=== PATIENT | male | born 1990 | race African-American/Black ===

== ENCOUNTER 2018-07-11 10:23 | Inpatient (IN) | payer MEDICAID, OTHER ==
[2018-07-11] MEDS ORDERED: Morphine 10 MG/ML VIAL (1 ml) IV ONE (10:59)
[2018-07-11] MEDS ORDERED: Ondansetron INJ* 2 MG/ML VIAL IV ONE (10:59)
[2018-07-11] MEDS ORDERED: NS 0.9% 1000 ML** 1,000 ML IV ONE (10:59)
--- NOTE | 2018-07-11 10:59 | ED ---
Lower Extremity - HPI Summary HPI Summary: This pt is a 27 y/o male presenting to [facility] c/o left lower extremity pain after jogging 2 miles today. Pt reports he was doing a PT test this morning and jogged 2 miles back and forth. He denies fall, trauma, or twisting his left leg. After his jog he felt "regular normal pain" that he usually has with endurance. Pt then was in line for his next test that involved weights. At this point pt was still able to bear weight on left leg but felt his pain increasing in severity. He notes that while the line was moving forward pt couldn't stand on his left leg anymore. Pt currently reports LLE pain from below his knee down to his toes and numbness, described as it is "anesthetized." Denies any other symptoms. - History of Current Complaint Chief Complaint: EDExtremityLower Stated Complaint: INJURED LEFT LEG PER PT Hx Obtained From: Patient Mechanism Of Injury: Other - no trauma Onset of Pain: Hours, Prior to Arrival Onset/Duration: Still Present Severity Initially: Mild Severity Currently: Severe Pain Intensity: 9 Pain Scale Used: 0-10 Numeric Timing: Constant, Lasting Hours Location: Is Discrete @ - left lower extremity Associated Signs And Symptoms: Positive: Other - POS: numbness to LLE. Negative : Swelling, Fever, Knee Pain Aggravating Factor(s): Movement Alleviating Factor(s): Rest Able to Bear Weight: No Related History: Other - after jogging 2 miles, atraumatic - Allergies/Home Medications Allergies/Adverse Reactions: Allergies Allergy/AdvReac Type Severity Reaction Status Date / Time No Known Allergies Allergy Verified 04/11/14 07:35 PMH/Surg Hx/FS Hx/Imm Hx Endocrine/Hematology History: Denies: Hx Diabetes Cardiovascular History: Denies: Hx Congestive Heart Failure, Hx Hypertension History: Denies: Hx Renal Disease - Immunization History Date of Tetanus Vaccine: PT STATES UNSURE Date of Influenza Vaccine: NONE Infectious Disease History: No Infectious Disease History: Denies: Hx Clostridium Difficile, Hx Hepatitis, Hx Human Immunodeficiency Virus (HIV), Hx of Known/Suspected MRSA, Hx Shingles, Hx Tuberculosis, Hx Known/ Suspected VRE, Hx Known/Suspected VRSA, History Other Infectious Disease, Traveled Outside the [place] in Last 30 Days - Family History Known Family History: Negative: Cardiac Disease - Social History Alcohol Use: Weekly Substance Use Type: Reports: None Smoking Status (MU): Never Smoked Tobacco Have You Smoked in the Last Year: No Review of Systems Negative: Fever, Chills Cardiovascular: Negative Respiratory: Negative Gastrointestinal: Negative Musculoskeletal: Other - POS: left lower extremity pain Positive: Numbness All Other Systems Reviewed And Are Negative: Yes Physical Exam - Summary Physical Exam Summary: VITAL SIGNS: Reviewed. GENERAL: Patient is a well-developed and nourished male who is lying comfortable in the stretcher. Patient is not in any acute respiratory distress. HEAD AND FACE: No signs of trauma. No ecchymosis, hematomas or skull depressions. No sinus tenderness. EYES: PERRLA, EOMI x 2, No injected conjunctiva, no nystagmus. EARS: Hearing grossly intact. Ear canals and tympanic membranes are within normal limits. MOUTH: Oropharynx within normal limits. NECK: Supple, trachea is midline, no adenopathy, no JVD, no carotid bruit, no c- spine tenderness, neck with full ROM. CHEST: Symmetric, no tenderness at palpation LUNGS: Clear to auscultation bilaterally. No wheezing or crackles. CVS: Regular rate and rhythm, S1 and S2 present, no murmurs or gallops appreciated. ABDOMEN: Soft, non-tender. No signs of distention. No rebound no guarding, and no masses palpated. Bowel sounds are normal. EXTREMITIES: LLE: good pedal pulses. Tender from the mendes down to the toes. Decreased ROM of the ankle. Tender to palpation along the whole leg. Decreased sensation. Pain is disproportionate to physical exam. NEURO: Alert and oriented x 3. No acute neurological deficits. Speech is normal and follows commands. SKIN: Dry and warm Triage Information Reviewed: Yes Vital Signs On Initial Exam: Initial Vitals Temp Pulse Resp BP Pulse Ox 99.4 F 95 20 147/77 100 07/11/18 10:32 07/11/18 10:32 07/11/18 10:32 07/11/18 10:32 07/11/18 10:32 Vital Signs Reviewed: Yes Diagnostics - Vital Signs Vital Signs Temp Pulse Resp BP Pulse Ox 07/11/18 10:32 99.4 F 95 20 147/77 100 - Laboratory Result Diagrams: 07/11/18 16:05 07/11/18 15:59 Lab Statement: Any lab studies that have been ordered have been reviewed, and results considered in the medical decision making process. - Radiology Left foot XR Radiology Interpretation Completed By: Radiologist Summary of Radiographic Findings: IMPRESSION: No fracture of the left foot is noted. Dr. Casey has reviewed this report. Left ankle XR Radiology Interpretation Completed By: Radiologist Summary of Radiographic Findings: IMPRESSION: No fracture of the left ankle is noted. Dr. Casey has reviewed this report. Left lower extremity XR Radiology Interpretation Completed By: Radiologist Summary of Radiographic Findings: IMPRESSION: No fracture of the left lower leg is noted. Dr. Casey has reviewed this report. - Ultrasound No standard instances Ultrasound Interpretation Completed By: Radiologist Summary of Ultrasound Findings: US of left lower extremity IMPRESSION: No evidence of deep venous thrombosis is identified. Dr. Casey has reviewed this report. Re-Evaluation - Re-Evaluation First Eval Re-Evaluation Time: 12:28 Comment: Dr. Turk, orthopedist, at bedside. Second Eval Re-Evaluation Time: 12:39 Comment: Dr. Turk, orthopedist, examined the pt and does not believe pt has compartment syndrome. Pt has good pulses so no suspicion for arterial occlusion. We are waiting for the US to rule out DVT. Third Eval Re-Evaluation Time: 14:14 Change: Unchanged Comment: Nurse tried to ambulate the pt in the ED and pt was unable to bear weight on left leg. Pt was unable to ambulate. Fourth Eval Re-Evaluation Time: 15:18 Change: Unchanged Comment: On reassessment pt reports his pain is 8/10 on left leg. Lower Extremity Course/Dx - Course Assessment/Plan: This patient is a 27-year-old male who presents to the emergency department with a chief complaint of left lower extremity pain. He reports that he started having severe pain this morning. The pain is reported to be 10/10. A physical exam reveals that the pain is out of proportion in the right lower extremity from the knee down to the foot, persistent deep aching burning pain, paresthesias, decreased sensation, and muscle weakness. The patient still has good pedal and posterior tibial pulses. Therefore have no suspicion for an arterial occlusion. Test results of the x-rays of the left tib -fib, left ankle and left foot negative for fracture dislocation. Ultrasound of the left lower extremity shows no DVT. Therefore, I am suspicious that the patient may be developing compartment syndrome even though the patient doesnt have any history of trauma. Therefore, I discussed the case with and Dr. Walters from orthopedics. Dr. Walters came and saw and examined the patient and he reports that the patients symptoms are not secondary to a compartment syndrome. The patient continues to have pain after the patient was given morphine 8 mg IV therefore the patient was given Toradol 30 mg IV. I tried to ambulate the patient however the patient has history of severe pain, he reports 8 out of 10, he has weakness in the left foot and unable to bear any weight. I tried to admit the patient and the patient is unable to ambulate, the patient is weak in the left lower extremity. The patient continued to have the upper portion, had persisting deep ache and burning, paresthesias, decreased sensation and muscle weakness. The patient is unable to dorsiflex the left foot. Therefore at this time I discussed my physical exam and findings with Dr. Stahl who is on-call right now and he came and assessed the patient. He measured the left lower extremity and elevated it. He confirms that the patient has a compartment syndrome. Therefore, the patient will be taken to the OR. Patient will be admitted under Dr. Loera services. - Diagnoses Provider Diagnoses: Compartment syndrome - Physician Notifications Discussed Care Of Patient With: Hollis Turk Time Discussed With Above Provider: 12:04 Instructed by Provider To: Other - [12:04] Discussed the case with Dr. Turk, orthopedist, who will come see the pt in the ED. [14:21] Dr. Stahl, orthopedist, was called however his nurse reports he is in surgery and will call back as soon as he is done. [15:12] Discussed the case with Dr. Stahl, orthopedist, who will come see the pt in the ED. At 15:40 Dr. Stahl arrives for a consult. He states his BPs are high in the LLE. He accepts pt for admission. - Critical Care Time Critical Care Time: 75-104 min - CCT is exclusive of separately billable procedures. Discharge - Sign-Out/Discharge Documenting (check all that apply): Patient Departure - Admit Patient Received Moderate/Deep Sedation with Procedure: No - Discharge Plan Condition: Stable Disposition: ADMITTED TO [facility] - Billing Disposition and Condition Condition: STABLE Disposition: Admitted to [facility] - Attestation Statements Document Initiated by Ana: Yes Documenting Scribe: Ashley Vazquez Provider For Whom Ana is Documenting (Include Credential): Bola Casey MD Scribe Attestation: Ashley Rose, scribed for Bola Casey MD on 07/11/18 at 1846. Scribe Documentation Reviewed: Yes Provider Attestation: The documentation as recorded by the Ashley canada accurately reflects the service I personally performed and the decisions made by me, Bola Casey MD Status of Scribe Document: Viewed
[2018-07-11 11:32] LABS: ABS Basophils 0.1 10^3/ul (0-0.2); ABS Eosinophils 0 10^3/ul (0-0.6); ABS Lymphocytes 0.9 10^3/ul (1.0-4.8); ABS Monocytes 0.6 10^3/ul (0-0.8); ABS Neutrophils 11.7 10^3/ul (1.5-7.7); ABS Nucleated RBC 0 10^3/ul; Eosinophil % 0 %; Hematocrit 46 % (36-46); Hemoglobin 15.2 g/dL (14.0-18.0); Lymphocyte % 6.8 %; Mean Corpuscular HGB Conc 33 g/dL (31-36); Mean Corpuscular Hemoglobin 26 pg (27-31); Mean Corpuscular Volume 77 fL (80-94); Mean Platelet Volume 7.8 fL (7.4-10.4); Nucleated Red Blood Cells % 0.1; Platelet Count 202 10^3/uL (150-450); Red Blood Count 5.97 10^6 /uL (4.18-5.48); Red Cell Distribution Width 14 % (10.5-15); White Blood Count 13.3 10^3/uL (3.5-10.8)
[2018-07-11 11:58] LABS: C Reactive Protein 1.6 mg/L (<8.01)
[2018-07-11] MEDS ORDERED: Morphine 4 MG/ML VIAL (1 ml) 4 MG/ML VIAL IV ONE (11:59)
[2018-07-11] MEDS ORDERED: Ketorolac INJ* 30 MG/ML 1 ML VIAL IM ONE (13:38)
--- NOTE | 2018-07-11 13:48 | CONS ---
EMERGENCY ROOM CONSULTATION NOTE: DATE OF CONSULT: 07/11/18 REASON FOR CONSULTATION: Left lower extremity pain and discomfort. BRIEF CLINICAL NOTE: This is a 27-year-old male who presented to the [facility] Emergency Room complaining of left lower extremity pain after a run. The patient vehemently denies any history of trauma to the left lower extremity. The patient states that he was running and began to develop severe left leg pain which prompted him to come to the emergency room. He was seen by the emergency room physician, Dr. Casey who evaluated the patient, obtained blood work and then asked for an orthopedic consultation for suspected compartment syndrome of the left leg. On seeing the patient, I asked the patient again about trauma which he vehemently denied. He states it is difficult for him to dorsiflex his foot on his own without discomfort. PHYSICAL EXAM: The patient has excellent pulses, dorsalis pedis and posterior tibial. Inspection of his left leg, calf is that it is soft and minimally tender to palpation. The patient has no increased pain of passive stretch of his ankle that is on forced dorsiflexion and plantar flexion. He has pain at the dorsum of his left foot but not his anterior calf or posterior calf and again as I stated both medial and lateral aspects of his leg, his calf are soft and minimally tender to palpation. DIAGNOSTIC STUDIES: The patient has had an ultrasound which appears to be within normal limits. X-rays of the patient's left lower extremity do not reveal any evidence of fracture or osseous abnormality. IMPRESSION: My impression is that I am uncertain as to the etiology of the patient's discomfort but I would suggest a vascular consult to be performed as again I am uncertain of the etiology of the patient's discomfort. I have discussed this case at length with Dr. Casey, the patient's ER physician and again on repeat review of the patient's left leg x-rays, I do not see any evidence of fracture of the left foot. I have reviewed AP, lateral and oblique and I do not see any evidence of fracture or osseous abnormality of the patient' s left foot and the radiologist concurs with my assessment. Additionally, I have re-reviewed the patient's left leg x-rays AP and lateral and I see no evidence of acute or chronic fracture of the patient's left lower leg, tib-fib and again re-reviewed the patient's ankle views AP, lateral and mortise and again there is no evidence of fracture or osseous abnormality. The vein study has not been officially read yet; however, I do not see any suspicion that would make me concerned about an acute compartment syndrome. In short, at this present time, I do not see evidence of a compartment syndrome involving the patient's left leg. I would strongly recommend an evaluation by vascular services and I have discussed that with the patient and with Dr. Casey and should orthopedic services be further needed, I am more than happy to respond and reevaluate the patient. Again, index of suspicion for a compartment syndrome is very low. [id number]/[id number] #: [id number] MTDD
[2018-07-11 13:56] LABS: Albumin 4.8 g/dL (3.2-5.2); Albumin/Globulin Ratio 1.7 (1-3); BUN/Creatinine Ratio 17.4 (8-20); EGFR African American 96.8 (>60); Globulin 2.9 g/dL (2-4); Potassium 4.2 mmol/L (3.5-5.0); Total Bilirubin 0.4 mg/dL (0.2-1.0); Total Protein 7.7 g/dL (6.4-8.9)
[2018-07-11 14:05] LABS: Urine Appearance Clear; Urine Bilirubin Negative (Negative); Urine Blood Negative (Negative); Urine Color Yellow; Urine Glucose Negative (Negative); Urine Ketones 1+ (Negative); Urine Nitrite Negative (Negative); Urine Protein Negative (Negative); Urine Specific Gravity 1.016 (1.010-1.030); Urine Urobilinogen Negative (Negative)
[2018-07-11] MEDS ORDERED: BENZOCAINE* 20% LIQUID SWAB 1 EACH MED..SWAB MT ONE (16:05)
[2018-07-11 16:17] LABS: ABS Lymphocytes 1.1 10^3/ul (1.0-4.8); ABS Monocytes 0.4 10^3/ul (0-0.8); Hematocrit 47 % (36-46); Hemoglobin 15.3 g/dL (14.0-18.0); Mean Corpuscular HGB Conc 33 g/dL (31-36); Mean Corpuscular Hemoglobin 25 pg (27-31); Mean Corpuscular Volume 77 fL (80-94); Mean Platelet Volume 8.3 fL (7.4-10.4); Platelet Count 174 10^3/uL (150-450); Red Blood Count 6.09 10^6 /uL (4.18-5.48); Red Cell Distribution Width 14 % (10.5-15); White Blood Count 11.6 10^3/uL (3.5-10.8)
[2018-07-11 16:18] LABS: ABS Basophils 0 10^3/ul (0-0.2); ABS Eosinophils 0 10^3/ul (0-0.6); ABS Nucleated RBC 0 10^3/ul; Eosinophil % 0 %; Lymphocyte % 9.6 %; Nucleated Red Blood Cells % 0.3
[2018-07-11] MEDS ORDERED: NS 0.9% 1000 ML** 1,000 ML IV SCH (16:30)
[2018-07-11 16:42] LABS: ALT 15 U/L (7-52); Albumin 4.9 g/dL (3.2-5.2); Albumin/Globulin Ratio 1.5 (1-3); Alkaline Phosphatase 38 U/L (34-104); BUN/Creatinine Ratio 15.3 (8-20); Blood Urea Nitrogen 15 mg/dL (6-24); CO2 Carbon Dioxide 24 mmol/L (22-32); Calcium 9.7 mg/dL (8.6-10.3); Chloride 103 mmol/L (101-111); Creatine Kinase 1734 U/L (10-223); EGFR African American 109.4 (>60); EGFR Non-African American 90.4 (>60); Globulin 3.2 g/dL (2-4); Glucose 94 mg/dL (70-100); Sodium 136 mmol/L (135-145); Total Protein 8.1 g/dL (6.4-8.9)
[2018-07-11] MEDS ORDERED: Bupivacaine 0.5%* 50 ML VIAL ONE (16:42)
[2018-07-11] MEDS ORDERED: Bupivacaine 0.25% SDV PF* 10 ML VIAL INJ ONE (16:45)
[2018-07-11] MEDS ORDERED: Ondansetron INJ* 2 MG/ML VIAL IV PRN (16:59)
[2018-07-11] MEDS ORDERED: HYDROcodone/ACETAMIN 5-325 MG* 1 TAB PO PRN ×2 (16:59)
[2018-07-11] MEDS ORDERED: PROCHLORPERAZINE INJ 5 MG/ML 2 ML VIAL IV PRN (16:59)
[2018-07-11] MEDS ORDERED: Acetaminophen TAB* 325 MG PO PRN ×2 (16:59→18:45)
[2018-07-11] MEDS ORDERED: Buffered Lidocaine 1% SYRIN* 1 ML/SYRINGE INTRADERM ONE (16:59)
[2018-07-11] MEDS ORDERED: diPHENhydraMINE IV* 50 MG/ML 1 ml VIAL (BENADRYL) IV PRN (16:59)
[2018-07-11] MEDS ORDERED: DiMENhydriNATE IV* 50 MG/ML VIAL IV PUSH PRN (16:59)
[2018-07-11] MEDS ORDERED: Naloxone* 0.4 MG/ML 1 ML VIAL IV PRN (16:59)
[2018-07-11] MEDS ORDERED: Lactated Ringers 1000 ML Bag* 1,000 ML IV SCH (17:00)
[2018-07-11] MEDS ORDERED: Famotidine IV* 10 MG/ML 2 ML (20 mg) ONE (17:01)
[2018-07-11] MEDS ORDERED: fentaNYL* 50 MCG/ML 2 ML VIAL (100 MCG VIAL) ONE ×4 (17:04→19:18)
[2018-07-11] MEDS ORDERED: Midazolam* 1 MG/ML 2 ML VIAL (2 MG) ONE (17:04)
[2018-07-11] MEDS ORDERED: ceFAZolin 2 GM PREMIX in ORs 2 GM/50 ML BAG IVPB ONE (17:05)
[2018-07-11] MEDS ORDERED: Succinylcholine* 20 MG/ML 10 ML VIAL ONE (17:06)
[2018-07-11] MEDS ORDERED: Cisatracurium* 2 MG/ML MDV 5 ML ONE (17:06)
[2018-07-11] MEDS ORDERED: Propofol* 10 MG/ML 20 ML BTL ONE (17:06)
[2018-07-11] MEDS ORDERED: Dexamethasone IV* 4 MG/ML 1 ML (4 MG) ONE (17:06)
[2018-07-11] MEDS ORDERED: Lidocaine 2% PF * 5 ML VIAL ONE (17:06)
[2018-07-11 17:09] LABS: Anion Gap 9 mmol/L (2-11)
[2018-07-11] MEDS ORDERED: ceFAZolin 2 GM in NS PREMIX(*) 2 GM/100 ML BAG IVPB ONE (17:09)
[2018-07-11 17:27] LABS: Activated Partial Thrombo Time 31.8 seconds (26.0-36.3); INR 1.04 (0.77-1.02)
--- NOTE | 2018-07-11 17:58 | HP ---
HISTORY AND PHYSICAL: DATE OF ADMISSION: 07/11/18 ADMISSION DIAGNOSIS: Left lower leg compartment syndrome. 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 The patient had physical testing with the [employer] this morning. Over recent weeks, he had been working out 2 to 3 times a week running and 2 to 3 times a week in the gym. This morning, the patient did much physical testing with the [employer]. He did push-ups, sit-ups and ran 4 times. The patient had no difficulties while completing these tasks. Afterwards, the patient was waiting in line to have his height and weight measured. He developed severe pain in the left lower leg. This was anterolateral. This was at 8:30 a.m. this morning, 07/11/18. The patient tried stretching. He could barely bear any weight. The patient was driven by a friend, also in the [employer] [place], to [facility]. The patient states that he developed numbness and tingling while driving to the hospital. The patient states that he does not have tingling now, but he does note reduced sensation in the foot. At first, the patient said that he had reduced sensation throughout the foot. Then, he told me it was specifically in the dorsum of the foot and the toes where his sensation was reduced. The patient was in significant pain according to ED staff, the patient and his friend. The patient states that he was almost shaking in discomfort at first. The patient was then given morphine in the ED and was more comfortable. The patient was given some type of anti-inflammatory medication as well. The patient was seen by another orthopaedic surgeon earlier in the day in the ED. During an operation of [facility] in the afternoon, I received a message to call Dr. Casey of emergency room staff at the end of my case. I did so. I called him at the conclusion of my operating room case. I was told that there was a patient in the ED with significant left lower leg pain, with symptoms and signs consistent with a compartment syndrome. I went immediately to the emergency room to evaluate the patient. The patient as above described some decreased sensation about the toes and dorsum of the foot and pain in the lower leg anterior and lateral. The patient has never had similar symptoms. PAST MEDICAL HISTORY: None. PAST SURGICAL HISTORY: None. HOSPITALIZATIONS: None. MEDICATIONS: No medications. ALLERGIES: No known drug allergies. SOCIAL HISTORY: The patient lives with a roommate. He does not smoke. He does drink alcohol. The patient does have somewhat of an accent, but I did not ask where he is originally from, if it was from outside the [place]. REVIEW OF SYSTEMS: No chest pain, shortness of breath, heart palpitations. No headache, nausea, vomiting. No abdominal pain, diarrhea. No other joint pain. PHYSICAL EXAMINATION GENERAL: No acute distress. Nontoxic-appearing. Alert and oriented, appropriate mood and affect, appropriate dress and hygiene, although the patient smells of body odor as would be expected after a workout. The patient was lying supine in stretcher in emergency room bay. VITAL SIGNS: Most recent vitals recorded were at 1:33 p.m. including pulse rate 73, blood pressure 162/92, oxygen saturation 100% on room air. Most recent blood pressure was 163/99 obtained at 2:03 p.m. I did not have a blood pressure obtained at the time of compartment syndrome testing, but the compartment pressures were so high that the diastolic blood pressure would not add additional diagnostic value. RESPIRATORY: Clear to auscultation bilaterally. CARDIAC: Heart rate regular rate and rhythm. No murmurs. EXTREMITIES: Left lower extremity: Examination of the left lower extremity showed some soft tissue swelling, moderate about the proximal left lower leg, anterior and lateral. No open skin. The patient had tenderness to palpation along the anterior and lateral compartments of the left lower leg. The posterior compartments on the other hand appeared soft and were not significantly tender to palpation. Passive range of motion of the toes and ankle, small amounts, was tolerated but was painful. It was clearly causing pain, although the patient was not quite jumping off the stretcher with significant pain. He thought that he might have been in more pain prior to his morphine dosing. Distally, the patient had intact excellent pulses, dorsalis pedis and posterior tibialis. Cap refill less than 2 seconds. or his motor exam, the patient could plantarflex his toes, but did so gingerly. The patient was unable to extend or dorsiflex his toes. He did not know whether this was from weakness or whether he was doing it to avoid pain, avoiding movements actively to avoid pain. The patient did have intact dorsiflexion and plantarflexion of the ankle actively, but there was discomfort with this. Sensation exam to light touch varied slightly, so I repeated it multiple times. Eventually, the patient decided that sensation was normal on the plantar aspect of the foot, but was abnormal, reduced on the dorsum of the foot and in the toes. DIAGNOSTIC STUDIES/LAB DATA: Imaging: The patient had multiple x-rays in the emergency room including 2 views left lower leg, 3 views ankle and 3 views foot , which showed no fracture and no significant degenerative changes. Emergency room staff had also ordered a duplex ultrasound, which showed no evidence of DVT. Labs were obtained after I requested them. A CK (creatine kinase) had been performed earlier in the day and was 333 at 11:22 a.m. Repeat labs showed a CK level of 1734 at 3:59 p.m. The patient's lactic acid was 3.8. White blood cell count 13.3 and then 11.6. ASSESSMENT: Likely left lower leg compartment syndrome. PLAN: 1. This clinical picture was very concerning for left lower leg compartment syndrome of the anterior and lateral compartments. 2. I performed compartment pressure testing left lower leg. I obtained a written consent and used sterile technique. 3. Procedure: Left lower leg compartment pressure measurement testing as mentioned above with written consent and sterile technique. At the mid-lower leg, I measured anterior and lateral compartments. Anterior compartment was 135 mmHg and lateral compartment was 130 mmHg. Then proximally where there was more swelling, I measured the anterior compartment to have 62 mmHg and the lateral compartment to have 141 mmHg. I then measured the deep posterior and the superficial posterior compartments. The deep posterior compartment measured 24 mmHg and the superficial posterior compartment measured 30 mmHg. 4. Compartment pressure testing certainly confirmed the diagnosis with values ranging from 62 to 141. The values of 130, 135 and 141 certainly represent compartment syndrome requiring surgery. 5. The patient is n.p.o. since 6:30 a.m. this morning. 6. To the operating room for left lower leg fasciotomy, compartment releases, possible muscle debridement, possible VAC sponge placement. I will decide with another exam in the PACU as well as in the operating room if I would just release the anterior and lateral compartments or if I will also release the posterior compartments. 7. Discussed risks and potential complications of surgery including bleeding, infection, nerve or blood vessel injury, failure to close the skin, requirement of second surgery to close the skin, requirement of future skin grafting, requirement to debride muscle during this surgical procedure. 8. I notified OR staff of this case immediately, prior to dictating this note, and this patient was brought to preop holding and then the operating room urgently. [id number] #: [id number] MTDD
[2018-07-11] MEDS ORDERED: Ondansetron INJ* 2 MG/ML VIAL ONE (18:25)
[2018-07-11] MEDS ORDERED: HYDROcodone/ACETAMIN 5-325 MG* 1 TAB ONE ×2 (18:45→19:19)
[2018-07-11] MEDS: fentaNYL* 50 MCG/ML 2 ML VIAL (100 MCG VIAL) IV PRN ×4 (18:48→20:13)
[2018-07-11] MEDS: Morphine INJ* 2 MG/ML 1 ML SYRINGE (TWO MG - NEW SYRINGE VERSION) IV PRN ×2 (20:57→23:22)
[2018-07-11] MEDS: Lactated Ringers 1000 ML Bag* 1,000 ML IV SCH (21:01)
[2018-07-11 21:29] LABS: Myoglobin 3777.4 ng/mL (17.4-105.7)
--- NOTE | 2018-07-11 22:39 | CONS ---
CC: Dr. Ryan * CONSULTATION REPORT: DATE OF CONSULT: 07/11/18 TIME OF CONSULT: 9 p.m. CONSULTING SERVICE: Orthopedic Surgery, Dr. Stahl. PRIMARY CARE PHYSICIAN: Dr. Ryan. CHIEF COMPLAINT: Left leg pain. REASON FOR CONSULTATION: Hypertension. HISTORY OF PRESENT ILLNESS: This is a 27-year-old man who presented to the emergency department after severe left leg pain and numbness after an exercise with the [employer] this morning. In the emergency department, he was found to have elevated compartment pressures and was taken emergently to the operating room with Dr. Stahl for fasciotomy. The etiology was thought was to be exercise-induced compartment syndrome. In the PACU, he was noted to have elevated blood pressures, the highest recorded is 189/111 and so we were asked to consult for blood pressure management. I came to evaluate Mr. Severino on Short Stay postoperatively and he is feeling okay. He says he still has significant pain postop and rates it at a 6/10 after a recent dose of morphine. Otherwise, he feels well and has no complaints. He has never been diagnosed with hypertension. He does have a primary care physician, Dr. Ryan; however, the last time he saw him was in 2017. He has had [address] Ryan and I have reviewed his blood pressures from 2016 to 2017 and he was normotensive from the 100s to 120s systolic. He takes no energy drinks or coffee, but does take an occasional supplement before he works out, which he did take this morning, but is not sure of the ingredients. REVIEW OF SYSTEMS: As per the HPI. Remainder of 14-point review of systems is negative. PAST MEDICAL HISTORY: Nephrolithiasis. HOME MEDICATIONS: None. SOCIAL HISTORY: He is a never smoker. He drinks 3 bottles of beer on Saturday, Saturday, and Saturday, but none during the week. He does not drink coffee or energy drinks. FAMILY HISTORY: He denies any family history of medical problems. He knows of no family members who have hypertension, heart disease, kidney disease, or diabetes. PHYSICAL EXAM: Temperature 98.4, heart rate 72, respiratory rate 16, pulse ox of 100% on room air, blood pressure 157/84. General: Alert, well-appearing young man, in no distress. He is resting comfortably. HEENT: Pupils are 2 mm bilaterally. Oral mucosa is dry. Neck: No JVP. No cervical adenopathy. No carotid bruits. Chest: He is in a regular rate and rhythm with no murmurs. His lungs are clear bilaterally. Abdomen is soft, nontender, nondistended. His liver is nonpalpable. Extremities: His left extremity is wrapped and with a cryo unit. His DP pulses are 2+ bilaterally and his sensation is intact distally bilaterally. DIAGNOSTIC STUDIES/LAB DATA: White blood cells are 11.6, hemoglobin 15.3, platelets 174, INR 1.04. Sodium 136, potassium was not tested due to hemolysis , chloride 103, bicarb 24, creatinine 0.98, BUN 15, glucose 94, lactic acid was initially 3.8 and then 0.7. CK was 1734. Urinalysis was unremarkable. Imaging: Venous Doppler study showed no evidence of DVT. Lower extremity x- ray showed no fracture of the left leg. ASSESSMENT AND PLAN: This is a 27-year-old, previously healthy man who presented to the emergency department today with leg pain and was found to have compartment syndrome. Medicine is consulted for hypertension postoperatively. 1. Hypertension. Certainly, his blood pressure was quite elevated postoperatively. However, it has trended down without intervention other than pain management on the floor. His current blood pressure is mildly elevated in the 150s/80s. I will hold off on antihypertensives at this time. However, we will continue to monitor to be sure he does not have underlying hypertension. I will continue to treat his pain and he may need more analgesia. Alcohol withdrawal is a concern; however, his last drink was reportedly on Saturday, so this is unlikely. He denies any other drugs that would suggest an etiology of hypertension or withdrawal. 2. Postop day #0, fasciotomy. He is receiving IV fluids, which I agree with and p.r.n. morphine as well as Percocet p.r.n. 3. Disposition: We will continue to follow Mr. Severino to be sure his blood pressure is acceptable. Thank you for this consultation. [id number]/[facility] #: [id number] [facility]OSPITALGeorge
[2018-07-12] MEDS: oxyCODONE/Acetamin 5/325 MG* TAB PO PRN ×5 (00:33→21:02)
[2018-07-12] MEDS: ceFAZolin 1 GM ADVAN(*) 1 GM in NS 0.9% 50 ML* 50 ML IVPB SCH ×5 (01:40→17:33)
[2018-07-12] MEDS: Lactated Ringers 1000 ML Bag* 1,000 ML IV SCH ×4 (04:13→23:14)
--- NOTE | 2018-07-12 11:12 | PN ---
Progress Note - Progress Note Date of Service: 07/12/18 SOAP: Subjective: Fortunately, despite the muscle swelling found intraoperatively yesterday afternoon/evening, we were able to primarily close the subcutaneous tissue and skin for an excellent primary closure. Patient reports decreased pain left lower leg and improved sensation left foot. This improved immediately postop, but has continued to improve. He still has pain and has been received PO and IV pain medication overnight. The patient had an elevated BP overnight, which was watched by myself and Hospitalist. CK elevated to 14,000 postoperatively last night, indicative of severe rhabdomyolysis from the compartment syndrome. Fortunately no elevated creatinine so no clear kidney injury or failure. Patient has been receiving 150 cc per hour of IVF overnight. Objective: NAD. Non-toxic appearing. LLE: - Dressing on - Intact DF/PF ankle, flexion/extension toes. Strength 4+ of 5. Much improved from preop. - Sensation intact except for still decreased in the distributions of the deep and superficial peroneal nerves. This sensation is significantly improved compared with preop in the peroneal nerve distribution. - Passive DF/PF ankle and flexion/extension toes is tolerated with less pain - Warm well perfused Selected Entries 07/12/18 07:26 Temperature 98.2 F Pulse Rate 59 Respiratory 18 Rate Blood Pressure 152/80 (mmHg) O2 Sat by Pulse 99 Oximetry Laboratory Tests 07/11/18 07/11/18 07/11/18 11:22 11:22 13:14 WBC Hct Creatinine 1.09 Lactic Acid 3.8 H* Total Creatine Kinase 333 H Myoglobin 07/11/18 07/11/18 07/11/18 15:59 16:05 21:01 WBC 11.6 H Hct 47 H Creatinine 0.98 Lactic Acid 0.7 Total Creatine Kinase 1734 H Myoglobin 07/11/18 21:02 WBC Hct Creatinine Lactic Acid Total Creatine Kinase 09082 H Myoglobin 3777.4 H Assessment: POD 1 fasciotomy left lower leg anterior and lateral compartments Rhabdomyolysis Plan: - Labs were ordered for this morning, but not drawn. They will be drawn now. - Monitor CK, Creatinine, and electrolytes to gauge the degree of muscle injury and detect any kidney injury - Continue IV fluids at 150cc/hour. If creatinine elevates, we will increase the rate of IV fluids. - I would like for the patient to be less painful after fasciotomy. I want to see the patient's pain continue to decrease today. I will keep him NPO for a few hours just to provide flexibility in the highly unlikely (<1%) chance that I would operate again today.
[2018-07-12] MEDS: Morphine INJ* 2 MG/ML 1 ML SYRINGE (TWO MG - NEW SYRINGE VERSION) IV PRN ×3 (14:29→23:16)
[2018-07-12 15:01] LABS: Myoglobin 1742.1 ng/mL (17.4-105.7)
[2018-07-12 17:00] LABS: Albumin 3.8 g/dL (3.2-5.2); Calcium 8.8 mg/dL (8.6-10.3); Total Bilirubin 0.5 mg/dL (0.2-1.0)
[2018-07-12 17:06] LABS: Albumin/Globulin Ratio 1.4 (1-3); EGFR African American 120.7 (>60); EGFR Non-African American 99.8 (>60); Globulin 2.8 g/dL (2-4); Total Protein 6.6 g/dL (6.4-8.9)
[2018-07-12] MEDS ORDERED: amLODIPine TAB* 5 MG PO SCH (18:00)
[2018-07-12 18:56] LABS: Potassium 4.5 mmol/L (3.5-5.0)
--- NOTE | 2018-07-12 19:50 | CONSULT ---
Subjective Date of Service: 07/12/18 Interval History: CK up to 14K then 21K Pain 5/10 with meds 7/10 otherwise [employer] stable. otherwise no complaints other than some slight parasthesias of right dorsum foot. no SOB or chest pain. Urinating clear x3. Review of Systems - Measurements Intake and Output: Intake and Output Last 24 Hours 07/10/18 07/11/18 07/12/18 07/13/18 06:59 06:59 06:59 06:59 Intake Total 2742020 Output Total 1150 1100 Balance 1595 921 Weight 71.214 kg Intake: IV Fluids 2592020 ABX - CEFAZOLIN 50 LR 990 1971 lr 600 IVPB 55 ABX - CEFAZOLIN 55 Oral 100 0 Output: Urine 1150 1100 Objective Active Medications: Acetaminophen (Tylenol Tab*) 650 mg PO Q8H PRN PRN Reason: PAIN OR TEMPERATURE Amlodipine Besylate (Norvasc Tab*) 5 mg PO DAILY EULAL[facility] Last Admin: 07/12/18 18:20 Dose: 5 mg Lactated Ringer's (Lactated Ringers 1000 Ml Bag*) 1,000 mls @ 250 mls/hr IV PER RATE EULAL[facility] Morphine Sulfate (Morphine Inj (Syringe))*) 2 mg IV Q2H PRN PRN Reason: PAIN Last Admin: 07/12/18 14:29 Dose: 2 mg Oxycodone/Acetaminophen (Percocet 5/325 Tab*) 2 tab PO Q4H PRN PRN Reason: PAIN Last Admin: 07/12/18 16:28 Dose: 2 tab Oxycodone/Acetaminophen (Percocet 5/325 Tab*) 1 tab PO Q4H PRN PRN Reason: PAIN Vital Signs - 8 hr 07/12/18 07/12/18 07/12/18 14:29 16:28 16:29 Temperature Pulse Rate Respiratory 16 20 20 Rate Blood Pressure (mmHg) O2 Sat by Pulse Oximetry 07/12/18 07/12/18 07/12/18 16:34 16:40 17:20 Temperature 99.1 F Pulse Rate 68 Respiratory 16 Rate Blood Pressure 185/84 172/84 170/78 (mmHg) O2 Sat by Pulse 100 Oximetry 07/12/18 18:41 Temperature Pulse Rate Respiratory 18 Rate Blood Pressure (mmHg) O2 Sat by Pulse Oximetry Oxygen Devices in Use Now: None Appearance: NAD. Eyes: No Scleral Icterus Ears/Nose/Mouth/Throat: NL Teeth, Lips, Gums Neck: NL Appearance and Movements; NL JVP, Trachea Midline Respiratory: Symmetrical Chest Expansion and Respiratory Effort, Clear to Auscultation Cardiovascular: NL Sounds; No Murmurs; No JVD, RRR Abdominal: NL Sounds; No Tenderness; No Distention, No Hepatosplenomegaly Extremities: - - right lateral calf with dressing, no strike thru. Sensation intact though paraesthesias. can wiggle toes. Neurological: Alert and Oriented x 3 Nutrition: Taking PO's Result Diagrams: 07/11/18 16:05 07/12/18 14:25 Additional Lab and Data: Laboratory Results - last 24 hr 07/11/18 07/11/18 07/11/18 21:01 21:01 21:02 Sodium Potassium Chloride Carbon Dioxide Anion Gap BUN Creatinine Est GFR ( Amer) Est GFR (Non-Af Amer) BUN/Creatinine Ratio Glucose Lactic Acid 0.7 Calcium Total Bilirubin AST ALT Alkaline Phosphatase Total Creatine Kinase 77356 H Myoglobin 3777.4 H B-Natriuretic Peptide 45 Total Protein Albumin Globulin Albumin/Globulin Ratio 07/12/18 07/12/18 07/12/18 14:25 14:25 14:25 Sodium 135 Potassium 4.5 Chloride 105 Carbon Dioxide 22 Anion Gap 8 BUN 9 Creatinine 0.90 Est GFR ( Amer) 120.7 Est GFR (Non-Af Amer) 99.8 BUN/Creatinine Ratio 10.0 Glucose 84 Lactic Acid 1.0 Calcium 8.8 Total Bilirubin 0.50 AST 329 H ALT 48 Alkaline Phosphatase 30 L Total Creatine Kinase 15151 H Myoglobin 1742.1 H B-Natriuretic Peptide 70 Total Protein 6.6 Albumin 3.8 Globulin 2.8 Albumin/Globulin Ratio 1.4 Assessment/Plan - Billing Plan By Medical Problem: 1. HTN - likely pain related but still elevated. Adding amlodipine 5mg. Pain control per ortho. 2. Rhabdo - CK climbing but [employer] stable. Adding on BMP daily. Increasing fluid from LR 150 to 250. Monitor for and SOB. Will continue to follow.
[2018-07-12] MEDS ORDERED: amLODIPine TAB* 5 MG PO ONE (22:18)
[2018-07-12] MEDS: hydrALAZINE IV* 20 MG/ML VIAL IV SLOW PU PRN (22:36)
[2018-07-13] MEDS: oxyCODONE/Acetamin 5/325 MG* TAB PO PRN ×4 (01:36→19:33)
[2018-07-13] MEDS: Morphine INJ* 2 MG/ML 1 ML SYRINGE (TWO MG - NEW SYRINGE VERSION) IV PRN ×6 (01:37→22:56)
--- NOTE | 2018-07-13 02:12 | OP ---
OPERATIVE REPORT: DATE OF OPERATION: 07/12/18 DATE OF : 86 SURGEON: Ayush Stahl MD AIRCRAFT MECHANIC: TK Liao A physician technology assistant was required for the length of the procedure for assistance with positioning, retraction, and closure. ANESTHESIOLOGIST: Dr. Ismael Mclaughlin. ANESTHESIA: General anesthesia, local anesthesia with a minimum of Marcaine placed subcutaneous about the incision site. PRE-OP DIAGNOSIS: Left lower leg compartment syndrome, traumatic, anterior and lateral compartments. POST-OP DIAGNOSIS: Left lower leg compartment syndrome, traumatic, anterior and lateral compartments. OPERATIVE PROCEDURE: Fasciotomies, left lower leg anterior and lateral compartments for a traumatic compartment syndrome. ANTIBIOTICS: Ancef 2 g IV. IV FLUIDS: 500 cc crystalloid. TOURNIQUET TIME: 37 minutes of a left thigh tourniquet set at 300 mmHg. [id number] TIME: 35 minutes. SPECIMEN: None. IMPLANTS: None. COMPLICATIONS: None. ESTIMATED BLOOD LOSS: Minimal. INDICATIONS: The patient is a 27-year-old man, who is also in the [employer], who presented to the emergency room on 07/11/18 after developing some left lower extremity complaints after some physical exam testing for the [employer]. The patient presented to the emergency room unable to comfortably bear weight with significant pain in the left lower leg as well as numbness and tingling on the dorsum of the left foot. The patient's history and physical were consistent with a compartment syndrome, although the patient had less pain and is typical with passive range of motion of the toes and ankle. Compartment pressure testing was performed by me in the emergency room with elevated pressures in both the anterior and lateral compartments of the left lower leg. This confirmed the diagnosis of a compartment syndrome, anterior and lateral compartments, left lower leg. After doing compartment testing, I immediately booked the operation and had the patient brought up to preoperative holding and arranged an operating room to be available for surgery. I discussed with the patient a procedure which would be a fasciotomy of the affected compartments, possible muscle debridement, possible primary skin closure, possible delayed closure, possible VAC sponge placement. I discussed risks and potential complications of surgery including but not limited to bleeding, infection, nerve or blood vessel injury, muscle necrosis, need for multiple additional surgeries, need for skin grafting. DESCRIPTION OF PROCEDURE: In the preoperative holding, the patient signed a written consent. Operative extremity was marked in preoperative holding. The patient was taken back to the operating room and placed supine on operating room table. Sedated and intubated. [place] bumps placed under the left hemipelvis. Left lower extremity was prepped and draped. Surgical time-out was performed. I debated using a tourniquet or not. Certainly compartment syndrome comes as a result of a decreased arterial inflow into the affected compartments. Tourniquet adds to this restricted inflow. However, I anticipated a very quick fasciotomy within skin incision. I figured that the tourniquet will provide improved visualization that would prevent a nerve injury to the superficial peroneal nerve or any other nerve in the anterior or lateral compartment. Therefore, the tourniquet around the left thigh was elevated 300 mmHg. A tourniquet was only elevated after surgical time-out had been performed. The left lower extremity was prepped and draped. I next made my skin incision over the anterolateral lower leg. My incision was 19 cm long. I dissected down through subcutaneous tissue to fascia. I cleared off the fascia very clearly along the length of the incision, just proximal and just distal to the skin incision as well. I identified the septum between the anterior and the lateral compartments. I made an incision in the anterior compartment. I did this away from the skin incision for healing purposes. I made the incision with a knife and continued with it Metzenbaum scissors both proximally and distally. I released only what I could see proximally and distally. I released at least 4 cm proximal and distal to the ends of the skin incision. I next moved to the lateral compartments and made a fasciotomy. I likewise extended this to length of the skin incision plus additional length both proximal and distal. As soon as I made the incisions in the fascia, both in the anterior and lateral compartments, the muscle burst slightly out of the fascia. This was less extreme than I have seen in the past. I evaluated the muscle. No clear necrotic muscle evident in either compartment, so no requirement of muscle debridement. Irrigation of wound. I was able to appose skin edges without significant tension so I realized that the primary closure will be feasible. We closed the subcutaneous layer with buried simple stitches using Vicryl 2-0 suture. I closed the skin with multiple running stitches using Nylon 3- 0 suture. We chose this over a staple for cosmetic reasons. We used a small amount of local anesthesia after skin closure and prior to dressing placement, approximately 5 cc of Marcaine. Xeroform, 4x4s, sterile Webril, Oz bandage. The patient was awakened, extubated and brought to the PACU. DISPOSITION: In the PACU, once the patient was awakened and became slightly more alert, I performed a physical exam. The patient had improvement in his active range of motion of his toes and ankle and he noted some improved sensation of the dorsum of the foot. The patient was admitted to my service for monitoring. We ordered pain medications to take as needed for pain. Our plan was to keep the patient's left lower extremity at the level of the heart. A cooling unit was used, cryotherapy was placed on the left lower leg to reduce inflammation and swelling. We placed an order for labs, serial creatinine kinase, chemistries, myoglobin. [id number]/[facility] #: [id number] [facility]TD[facility]
[2018-07-13] MEDS: Lactated Ringers 1000 ML Bag* 1,000 ML IV SCH ×2 (03:26→07:39)
[2018-07-13 07:48] LABS: BUN/Creatinine Ratio 7.1 (8-20); Calcium 9.3 mg/dL (8.6-10.3); EGFR African American 128.9 (>60); EGFR Non-African American 106.6 (>60); Potassium 4.2 mmol/L (3.5-5.0)
--- NOTE | 2018-07-13 08:40 | PN ---
Subjective Date of Service: 07/13/18 Interval History: Mr. Severino reports having pain in his left leg but denies other complaint including chest pain, SOB, nausea, or abdominal pain. Objective Active Medications: Acetaminophen (Tylenol Tab*) 650 mg PO Q8H PRN Amlodipine Besylate (Norvasc Tab*) 10 mg PO DAILY [facility] Hydralazine HCl (Apresoline Iv*) 5 mg IV SLOW PU Q4H PRN Lactated Ringer's (Lactated Ringers 1000 Ml Bag*) 1,000 mls @ 250 mls/hr IV PER RATE EULALIA Morphine Sulfate (Morphine Inj (Syringe))*) 2 mg IV Q2H PRN Oxycodone/Acetaminophen (Percocet 5/325 Tab*) 2 tab PO Q4H PRN Oxycodone/Acetaminophen (Percocet 5/325 Tab*) 1 tab PO Q4H PRN Vital Signs: Temp Pulse Resp BP Pulse Ox 99.8 F 95 14 149/60 97 07/13/18 03:41 07/13/18 03:41 07/13/18 06:25 07/13/18 03:41 07/13/18 03:41 Oxygen Devices in Use Now: None Appearance: Male lying in bed in NAD Eyes: No Scleral Icterus Ears/Nose/Mouth/Throat: Mucous Membranes Moist Neck: Trachea Midline Respiratory: Symmetrical Chest Expansion and Respiratory Effort, Clear to Auscultation Cardiovascular: NL Sounds; No Murmurs; No JVD, No Edema Abdominal: NL Sounds; No Tenderness; No Distention Extremities: No Edema Skin: - - + CMS left lower extremity, dressing CDI Neurological: Alert and Oriented x 3, NL Muscle Strength and Tone Nutrition: - - NPO Result Diagrams: 07/11/18 16:05 07/13/18 07:15 Additional Lab and Data: Vital Signs: Temp Pulse Resp BP Pulse Ox 99.8 F 95 14 149/60 97 07/13/18 03:41 07/13/18 03:41 07/13/18 06:25 07/13/18 03:41 07/13/18 03:41 Assess/Plan/Problems-Billing Mr. Severino is a 27 yo male with no significant PMH who was admitted on 07/11/18 with rhabdomyolysis and compartment syndrome after intense workout. - Patient Problems (1) Rhabdomyolysis Comment: - CK peaked at 21K, now 17K - Creatinine remains normal - Decrease fluids to 150 ml/hr, double check CK this afternoon (2) Compartment syndrome Comment: - POD # 1 s/p fasciotomy to left lower extremity with Dr. Loera (3) Hypertension Comment: - SBP 140s now with amlodipine - Suspect BP elevated due to pain and aggressive IV fluids - Continue to monitor (4) DVT prophylaxis Comment: - Hold per ortho (5) Full code status Comment: Status and Disposition: Inpatient.
[2018-07-13] MEDS: amLODIPine TAB* 5 MG PO SCH (08:48)
[2018-07-13] MEDS ORDERED: Lactated Ringers 1000 ML Bag* 1,000 ML IV SCH (09:03)
[2018-07-13] MEDS ORDERED: NS 0.9% 1000 ML** 1,000 ML IV SCH ×2 (09:45→18:01)
--- NOTE | 2018-07-13 09:53 | PN ---
Progress Note - Progress Note Date of Service: 07/13/18 SOAP: Subjective: Pain is decreased in lower leg compared with yesterday. At first patient said he was clearly improved compared with yesterday, then he said he is slightly improved. Sensation is improved compared with yesterday, but still funny or reduced about dorsum of the foot. Patient states that he feels it is improving in the direction from the lateral to the medial aspect of the dorsum of the foot. Patient took Morphine and Percocet through the night, but said that he slept well, comfortably. Several times, the patient has said that he has no history of elevated BP. Today, he acknowledged that in the past, when his BP has been measured by "machines" automatically, he has had elevated readings. When asked about prior readings, he mentioned 175 systolic. It's hard to say how accurate this recollection is. The patient gets routine BP screening performed as part of his [employer] duties. So he may have baseline hypertension. Objective: NAD, non-toxic. LLE: - dressing in place - soft tissue swelling anterolateral lower leg - tenderness anterior and lateral compartments - No tenderness to palpation of posterior compartments , even with vigorous palpation - No pain whatsoever with aggressive, full PROM of all toes. No pain with PROM of ankle within 10 degrees dorsiflexion and 20 degrees planatarflexion. With extremes of PROM ankle, there is lower leg pain. - DP and PT pulses intact to touch - 5/5 strength ankle dorsiflexion, plantarflexion, inversion, eversion - Sensation intact but "funny" or reduced over dorsum left foot - Unable to normally weight bear through LLE because of left lower leg nae/ Selected Entries 07/13/18 07/13/18 03:41 08:14 Temperature 99.8 F 98.6 F Pulse Rate 95 84 Respiratory 16 Rate Blood Pressure 149/60 149/73 (mmHg) O2 Sat by Pulse 97 100 Oximetry Laboratory Tests 07/11/18 07/11/18 07/11/18 11:22 13:14 15:59 WBC 13.3 H Lactic Acid 3.8 H* Total Creatine Kinase 1734 H Myoglobin 07/11/18 07/11/18 07/11/18 16:05 21:01 21:02 WBC 11.6 H Lactic Acid 0.7 Total Creatine Kinase 03020 H Myoglobin 3777.4 H 07/12/18 07/12/18 07/13/18 14:25 14:25 07:15 WBC Lactic Acid 1.0 1.1 Total Creatine Kinase 43747 H Myoglobin 1742.1 H 07/13/18 07:15 WBC Lactic Acid Total Creatine Kinase 06349 H Myoglobin 763.0 H Assessment: POD 2 left lower leg compartment syndrome, anterior and lateral compartments Rhabdomyolysis Possible baseline hypertension Plan: - Encouraging trends- pain reduced, exam improved, CK & myoglobin decreased. - I had made the patient NPO after midnight last night in case I wanted to return patient to the OR for possible muscle debridement. However, given the encouraging trends mentioned above, I let the patient eat now. - Given the normal creatinine, I am not particularly concerned about kidney impairment or failure. Therefore, I dropped the IVF rate from 150 to 50cc/ hour. I want to avoid any amount of fluid overload in the lower leg that might delay improvement of symptoms, however unlikely in a young, healthy man. - Hospitalist ordered a CK for this afternoon. Excellent idea. Additional decrease in CK will provide another data point demonstrating improvement. - It is somewhat concerning that the patient still has altered sensation in the foot and enough pain to require Percocet and Morphine. - We will decrease the amount of pain medication provided to obtain a better feel for the patient's true level of pain. The patient is now written for just 1 tablet Percocet q 6 hrs prn and Morphine 2mg IV q 2 hrs prn. I described to the patient the rationale for this. We will make the patient NPO after midnight tonight. Tomorrow, I could consider a repeat I&D and possible muscle debridement. - We will continue to follow daily AM electrolytes (creatinine), CK, myoglobin. - Ice to left lower leg. 2 pillow elevation so the lower leg is at the level of the heart. - The patient has paperwork for us to fill out for the [employer]. - Continue to monitor BP, amlodipine per Hospitalist.
[2018-07-13] MEDS: hydrALAZINE IV* 20 MG/ML VIAL IV SLOW PU PRN ×3 (15:49→23:43)
--- NOTE | 2018-07-13 20:01 | PN ---
Progress Note - Progress Note Date of Service: 07/13/18 SOAP: Subjective: The patient looked terrific this morning. Today I decreased his oral pain med intake. No significant pain, great 5/5 strength and ROM I noted slight increase in CK between this morning and late afternoon. I was at the hospital doing an operation and visited with the patient. Patient described setbacks. More pain then this morning. Decreased sensation dorsal foot, worse than earlier today, consistent with yesterday, but still better than Saturday preoperatively. I visited with the patient this evening before and after my operation and he was more painful in this 1 hour of time passing. Objective: LLE: - Increased swelling left lower leg compared with right lower leg - Increased tenderness anterior and lateral compartments lower leg - Decreased sensation dorsum foot - Pain limiting patient's ability to do any strength testing of ankle Selected Entries 07/13/18 07/13/18 15:43 19:33 Temperature 100.0 F Pulse Rate 92 Respiratory 20 18 Rate Blood Pressure 165/71 (mmHg) O2 Sat by Pulse 100 Oximetry Laboratory Tests 07/11/18 07/12/18 07/13/18 21:02 14:25 07:15 Total Creatine Kinase 18882 H 91822 H 46685 H 07/13/18 14:50 Total Creatine Kinase 07464 H Assessment: POD 2 fasciotomy left lower leg Rhabdomyolysis Worsening pain, decreased sensation since this morning Plan: - To OR now exploration left lower leg, possible muscle debridement, likely VAC placement - Considered waiting until tomorrow because recent PO intake, but patient symptoms worsening, even over 1 hour this evening
[2018-07-13] MEDS ORDERED: Midazolam* 1 MG/ML 5 ML VIAL (5 MG) ONE (20:13)
[2018-07-13] MEDS ORDERED: fentaNYL* 50 MCG/ML 2 ML VIAL (100 MCG VIAL) ONE (20:13)
[2018-07-13] MEDS ORDERED: ceFAZolin 2 GM in NS PREMIX(*) 2 GM/100 ML BAG IVPB ONE (20:21)
[2018-07-13] MEDS ORDERED: Propofol* 500 MG/50 ML BTL ONE (21:04)
[2018-07-13] MEDS ORDERED: Phenylephrine 10 MG/ML VIAL* 1 ML VIAL ONE (21:04)
[2018-07-13] MEDS ORDERED: Chloroprocaine 2%* 20 ML VIAL ONE (21:04)
[2018-07-13] MEDS ORDERED: Morphine INJ* 2 MG/ML 1 ML SYRINGE (TWO MG - NEW SYRINGE VERSION) IV ONE (22:40)
[2018-07-13] MEDS: NS 0.9% 1000 ML** 1,000 ML IV SCH (22:50)
[2018-07-13] MEDS ORDERED: oxyCODONE/Acetamin 5/325 MG* TAB ONE (22:55)
[2018-07-14] MEDS: Morphine INJ* 2 MG/ML 1 ML SYRINGE (TWO MG - NEW SYRINGE VERSION) IV PRN (00:51)
[2018-07-14] MEDS: oxyCODONE/Acetamin 5/325 MG* TAB PO PRN ×5 (03:35→23:02)
[2018-07-14 06:50] LABS: Blood Urea Nitrogen 9 mg/dL (6-24); CO2 Carbon Dioxide 25 mmol/L (22-32); Calcium 9.1 mg/dL (8.6-10.3); Chloride 102 mmol/L (101-111); EGFR African American 134.4 (>60); EGFR Non-African American 111.1 (>60); Glucose 93 mg/dL (70-100); Sodium 134 mmol/L (135-145)
[2018-07-14 07:02] LABS: Anion Gap 7 mmol/L (2-11)
[2018-07-14 07:13] LABS: Creatine Kinase 11380 U/L (10-223)
[2018-07-14] MEDS: amLODIPine TAB* 5 MG PO SCH (07:51)
[2018-07-14] MEDS: NS 0.9% 1000 ML** 1,000 ML IV SCH (07:52)
[2018-07-14] MEDS ORDERED: NS 0.9% 1000 ML** 1,000 ML IV SCH (07:58)
--- NOTE | 2018-07-14 10:51 | PN ---
Progress Note - Progress Note Date of Service: 07/14/18 SOAP: Subjective: []Patient seen at bedside. He feels well, pain is currently well controlled is the LLE. Denies fever, chills, CP, SOB. Sensation of foot is intact though he still describes sensation as feeling "funny". Objective: []General: Well appearing, NAD LLE: vac in place with good suction, no erythema surrounding. Anterior and lateral compartments are compressible, mildly tender. Nonpainful active and passive ROM of all toes and ankle. Sensation intact to light touch throughout the foot, dorsum of the foot sensation is intact to light touch though patient states it feels "funny" and "like a rock". DP2+, capillary refill less than two seconds distally. Assessment: []POD 2 left lower leg compartment syndrome, anterior and lateral compartments Rhabdomyolysis Plan: - trend CK, chemistries, myoglobin - renal function WNL - We will continue to follow daily AM electrolytes (creatinine), CK, myoglobin. - Ice to left lower leg. 2 pillow elevation so the lower leg is at the level of the heart. - Continue to monitor BP per Hospitalist. - will need to return to OR later this week Vital Signs Temp 99.2 F 07/14/18 07:40 Pulse 88 07/14/18 07:40 Resp 16 07/14/18 08:00 BP 154/65 07/14/18 07:40 Pulse Ox 100 07/14/18 08:00 Intake & Output 07/13/18 07/14/18 07/14/18 18:59 06:59 18:59 Intake Total 1612 100 926 Output Total 1350 1150 500 Balance 262 -1050 426 Intake: IV Fluids 1612 100 926 LR 1612 NORMAL SALINE 926 NS 100ML, Cefazolin 2G 100 Oral 0 0 Output: Urine 1350 1150 500 Laboratory Last Values WBC 11.6 10^3/uL (3.5-10.8) H 07/11/18 16:05 RBC 6.09 10^6 /uL (4.18-5.48) H 07/11/18 16:05 Hgb 15.3 g/dL (14.0-18.0) 07/11/18 16:05 Hct 47 % (36-46) H 07/11/18 16:05 MCV 77 fL (80-94) L 07/11/18 16:05 MCH 25 pg (27-31) L 07/11/18 16:05 MCHC 33 g/dL (31-36) 07/11/18 16:05 RDW 14 % (10.5-15) 07/11/18 16:05 Plt Count 174 10^3/uL (150-450) 07/11/18 16:05 MPV 8.3 fL (7.4-10.4) 07/11/18 16:05 Neut % (Auto) 86.5 % 07/11/18 16:05 Lymph % (Auto) 9.6 % 07/11/18 16:05 [place] % (Auto) 3.6 % 07/11/18 16:05 Eos % (Auto) 0 % 07/11/18 16:05 Baso % (Auto) 0.3 % 07/11/18 16:05 Absolute Neuts (auto) 10.0 10^3/ul (1.5-7.7) H 07/11/18 16:05 Absolute Lymphs (auto) 1.1 10^3/ul (1.0-4.8) 07/11/18 16:05 Absolute Monos (auto) 0.4 10^3/ul (0-0.8) 07/11/18 16:05 Absolute Eos (auto) 0 10^3/ul (0-0.6) 07/11/18 16:05 Absolute Basos (auto) 0 10^3/ul (0-0.2) 07/11/18 16:05 Absolute Nucleated RBC 0 10^3/ul 07/11/18 16:05 Nucleated RBC % 0.3 07/11/18 16:05 INR (Anticoag Therapy) 1.04 (0.77-1.02) H 07/11/18 16:57 APTT 31.8 seconds (26.0-36.3) 07/11/18 16:57 Sodium 134 mmol/L (135-145) L 07/14/18 06:10 Potassium 4.4 mmol/L (3.5-5.0) 07/14/18 07:37 Chloride 102 mmol/L (101-111) 07/14/18 06:10 Carbon Dioxide 25 mmol/L (22-32) 07/14/18 06:10 Anion Gap 7 mmol/L (2-11) 07/14/18 06:10 BUN 9 mg/dL (6-24) 07/14/18 06:10 Creatinine 0.82 mg/dL (0.67-1.17) 07/14/18 06:10 Est GFR ( Amer) 134.4 (>60) 07/14/18 06:10 Est GFR (Non-Af Amer) 111.1 (>60) 07/14/18 06:10 BUN/Creatinine Ratio 11.0 (8-20) 07/14/18 06:10 Glucose 93 mg/dL (70-100) 07/14/18 06:10 Lactic Acid 1.1 mmol/L (0.5-2.0) 07/13/18 07:15 Calcium 9.1 mg/dL (8.6-10.3) 07/14/18 06:10 Total Bilirubin 0.50 mg/dL (0.2-1.0) 07/12/18 14:25 AST 329 U/L (13-39) H 07/12/18 14:25 ALT 48 U/L (7-52) 07/12/18 14:25 Alkaline Phosphatase 30 U/L (34-104) L 07/12/18 14:25 Total Creatine Kinase 50959 U/L (10-223) H 07/14/18 06:10 Myoglobin 763.0 ng/mL (17.4-105.7) H 07/13/18 07:15 C-Reactive Protein 1.60 mg/L (<8.01) 07/11/18 11:22 B-Natriuretic Peptide 70 pg/mL (<=100) 07/12/18 14:25 Total Protein 6.6 g/dL (6.4-8.9) 07/12/18 14:25 Albumin 3.8 g/dL (3.2-5.2) 07/12/18 14:25 Globulin 2.8 g/dL (2-4) 07/12/18 14:25 Albumin/Globulin Ratio 1.4 (1-3) 07/12/18 14:25 Urine Color Yellow 07/11/18 13:40 Urine Appearance Clear 07/11/18 13:40 Urine pH 7.0 (5-9) 07/11/18 13:40 Ur Specific [place] 1.016 (1.010-1.030) 07/11/18 13:40 Urine Protein Negative (Negative) 07/11/18 13:40 Urine Ketones 1+ (Negative) A 07/11/18 13:40 Urine Blood Negative (Negative) 07/11/18 13:40 Urine Nitrate Negative (Negative) 07/11/18 13:40 Urine Bilirubin Negative (Negative) 07/11/18 13:40 Urine Urobilinogen Negative (Negative) 07/11/18 13:40 Ur Leukocyte Esterase Negative (Negative) 07/11/18 13:40 Urine Glucose Negative (Negative) 07/11/18 13:40 <Sherice Mcqueen - Last Filed: 07/14/18 10:56> - Progress Note SOAP: Subjective: Clarification to above: patient is POD 3 fasciotomy and primary closure skin, POD 1 I&D with wound VAC placement Patient describes pain, but significant improvement from prior to yesterday's second procedure. Still some decreased sensation dorsal foot. Objective: LLE: - VAC working well - pulses intact to touch foot - Sensation intact except altered or decreased in SP, DP distributuons - Intact motor function ankle DF, PF, all toes flexion and extension - Can't assess strength of motor function as the patient has pain in the lower leg with active ankle and toe ROM - Pain with extremes of PROM ankle and toes Selected Entries 07/14/18 07/14/18 07/14/18 11:31 15:48 17:01 Temperature 99.8 F 101.6 F 100.3 F Pulse Rate 107 Laboratory Tests 07/11/18 07/11/18 07/11/18 11:22 15:59 21:02 Total Creatine Kinase 333 H 1734 H 00086 H Myoglobin 3777.4 H 07/12/18 07/13/18 07/13/18 14:25 07:15 14:50 Total Creatine Kinase 66334 H 01719 H 76501 H Myoglobin 1742.1 H 763.0 H 07/13/18 07/14/18 07/14/18 21:51 06:10 17:41 Total Creatine Kinase 07919 H 49776 H 8984 H Myoglobin 163.7 H Assessment: POD 3 left lower leg fasciotomies anterior and lateral compartments with primary skin closure POD 1 exploration left lower leg with VAC closure Compartment syndrome secondary to exercise exertion Severe rhabdomyolysis without impaired kidney function Plan: - Continue to monitor pain level trend (taking into consideration pain medication use) - Continue to monitor exam trends (pain with PROM/AROM, sensation dorsal foot in SP/DP distributions) - Continue to monitor CK level trend (helpful given the patient's stoicism and unusual nature of this case) along with myoglobin, chemistries. - Patient will need procedure this week, exchange of VAC sponge, possible primary closure. I discussed with Dr. Childress. - Rare, but well-documented cause of acute compartment syndrome - Unusual worsening yesterday required a 2nd procedure. Given the persistent elevation of compartment pressures measured intraop, visible expansion of the muscle volume, and visible tautness of the skin noted at the 2nd procedure, the 2nd procedure itself was clearly required. The improvement after the 2nd case is also support of this. I suspect that the skin and subQ closure produced a pseudo- compartment syndrome. - Ice and 2 pillow elevation - SCD RLE for DVT prophylaxis - Pain control - No clear source or elevated temperature. I suspect inflammatory reaction to rhabdo rather than infection. - Patient is now being covered with Keflex given the open wound, some muscle damage <Ayush Stahl - Last Filed: 07/14/18 20:49>
[2018-07-14] MEDS: Cephalexin CAP* 500 MG PO SCH ×2 (14:08→23:02)
--- NOTE | 2018-07-14 14:37 | PN ---
Subjective Date of Service: 07/14/18 Interval History: Pt seen and examined. Meds and labs reviewed. CC: N/A ROS: Denied GASTON/dizziness, F/C, N/V, CP, SOB, increased cough, sputum production , abd pain, diarrhea, constipation, dysuria, myalgias, arthralgias, throat pain , and new skin lesions. The rest of the 14 point ROS are unremarkable. PHYSICAL EXAM: GEN APPEARANCE: Awake, not in acute distress HEENT: NC/AT, PERRLA, moist oral mucosa, (-) throat erythema NECK: Soft, supple, (-) cervical LAD, (-)JVD HEART: S1S2 WNL, RRR, No MRG CHEST: CTA, BL, GAE, No W/R/R ABD: Soft, ND/NT, NABS 4x Q EXT: No C/C/LLE edema w/ wound VAC in place SKIN: Warm to touch PSYCH: No active psychosis, hallucinations, depression, SI/HI Objective Active Medications: Acetaminophen (Tylenol Tab*) 650 mg PO Q8H PRN PRN Reason: PAIN OR TEMPERATURE Amlodipine Besylate (Norvasc Tab*) 10 mg PO DAILY [facility] Last Admin: 07/14/18 07:51 Dose: 10 mg Cephalexin HCl (Keflex Cap*) 500 mg PO TID [facility] Last Admin: 07/14/18 14:08 Dose: 500 mg Hydralazine HCl (Apresoline Iv*) 5 mg IV SLOW PU Q4H PRN PRN Reason: BRADYCARDIA Last Admin: 07/13/18 23:43 Dose: 5 mg Sodium Chloride (Ns 0.9% 1000 Ml) 1,000 mls @ 100 mls/hr IV PER RATE [facility] Last Admin: 07/14/18 08:02 Dose: 150 mls/hr Morphine Sulfate (Morphine Inj (Syringe))*) 2 mg IV Q2H PRN PRN Reason: PAIN - SEVERE Last Admin: 07/14/18 00:51 Dose: 2 mg Oxycodone/Acetaminophen (Percocet 5/325 Tab*) 1 tab PO Q4H PRN PRN Reason: PAIN Last Admin: 07/13/18 19:33 Dose: 1 tab Oxycodone/Acetaminophen (Percocet 5/325 Tab*) 2 tab PO Q4H PRN PRN Reason: PAIN - MODERATE Last Admin: 07/14/18 14:08 Dose: 2 tab Vital Signs - 8 hr 07/14/18 07/14/18 07/14/18 07:40 07:50 08:00 Temperature 99.2 F Pulse Rate 88 Respiratory 16 16 16 Rate Blood Pressure 154/65 (mmHg) O2 Sat by Pulse 100 100 Oximetry 07/14/18 07/14/18 11:31 14:08 Temperature 99.8 F Pulse Rate 96 Respiratory 16 16 Rate Blood Pressure 138/58 (mmHg) O2 Sat by Pulse 100 Oximetry Oxygen Devices in Use Now: None Result Diagrams: 07/11/18 16:05 07/14/18 07:37 Additional Lab and Data: Vital Signs: Temp Pulse Resp BP Pulse Ox 99.8 F 95 14 149/60 97 07/13/18 03:41 07/13/18 03:41 07/13/18 06:25 07/13/18 03:41 07/13/18 03:41 Assess/Plan/Problems-Billing Mr. Severino is a 27 yo male with no significant PMH who was admitted on 07/11/18 with rhabdomyolysis and compartment syndrome after intense workout. - Patient Problems (1) Rhabdomyolysis Current Visit: Yes Status: Acute Code(s): M62.82 - RHABDOMYOLYSIS SNOMED Code(s): 916465680 Comment: -S/P re-exploration of LLE w/wound VAC placement last night (07/13/18), POD#2 of fasciotomy of LLE. - CK peaked at 21K, now 11K---continues to improve - Creatinine remains normal - Increased IVFs back to 150 ml/hr due to pts spontaneous diuresis -Continue to trend CKs -Continue cold compress and elevation of LLE per ortho and will defer -To return to OR for re-exploration and debridement later this week per ortho will defer (2) Compartment syndrome Current Visit: Yes Status: Acute Code(s): T79.A0XA - COMPARTMENT SYNDROME, UNSPECIFIED, INITIAL ENCOUNTER SNOMED Code(s): 997762101 Comment: - POD # 2 s/p fasciotomy to left lower extremity with Dr. Loera (3) Hypertension Current Visit: Yes Status: Acute Code(s): I10 - ESSENTIAL (PRIMARY) HYPERTENSION SNOMED Code(s): 68064864 Comment: - SBP 140s now with amlodipine - Suspect BP elevated due to pain and aggressive IV fluids - Continue to monitor (4) DVT prophylaxis Current Visit: Yes Status: Acute Code(s): MHF9826 - SNOMED Code(s): 847572576 Comment: - Hold per ortho Status and Disposition: -As above
[2018-07-14 17:16] LABS: Urine Appearance Clear; Urine Bilirubin Negative (Negative); Urine Blood Negative (Negative); Urine Color Yellow; Urine Glucose Negative (Negative); Urine Ketones 1+ (Negative); Urine Nitrite Negative (Negative); Urine Protein Negative (Negative); Urine Specific Gravity 1.011 (1.010-1.030); Urine Urobilinogen Negative (Negative)
[2018-07-14 18:11] LABS: Myoglobin 163.7 ng/mL (17.4-105.7)
[2018-07-14 21:06] LABS: ABS Basophils 0 10^3/ul (0-0.2); ABS Eosinophils 0 10^3/ul (0-0.6); ABS Lymphocytes 1.7 10^3/ul (1.0-4.8); ABS Monocytes 0.4 10^3/ul (0-0.8); ABS Nucleated RBC 0 10^3/ul; Eosinophil % 0.4 %; Hematocrit 45 % (36-46); Hemoglobin 14.7 g/dL (14.0-18.0); Lymphocyte % 23.4 %; Mean Corpuscular HGB Conc 33 g/dL (31-36); Mean Corpuscular Hemoglobin 25 pg (27-31); Mean Corpuscular Volume 78 fL (80-94); Mean Platelet Volume 8.8 fL (7.4-10.4); Nucleated Red Blood Cells % 0.3; Platelet Count 183 10^3/uL (150-450); Red Blood Count 5.83 10^6 /uL (4.18-5.48); Red Cell Distribution Width 14 % (10.5-15); White Blood Count 7.2 10^3/uL (3.5-10.8)
--- NOTE | 2018-07-15 00:31 | OP ---
DATE OF OPERATION: 07/13/18 - ROOM #340 DATE OF : 86 SURGEON: Ayush Stahl MD MANAGER WILLOW: None. ANESTHESIOLOGIST: Dr. Bear Sher. ANESTHESIA: General anesthesia. PRE-OP DIAGNOSES: 1. Status post 04/12/18 fasciotomy anterior and lateral compartments lower leg for acute compartment syndrome. 2. Worsening left lower extremity pain and numbness in the distribution of the peroneal nerve. 3. Severe rhabdomyolysis. POST-OP DIAGNOSES: 1. Status post 04/12/18, fasciotomy anterior and lateral compartments lower leg for acute compartment syndrome. 2. Worsening left lower extremity pain and numbness in the distribution of the peroneal nerve. 3. Severe rhabdomyolysis. OPERATIVE PROCEDURES: 1. Left lower leg fasciotomy, extension or revision, anterior and lateral compartments. 2. Left lower leg compartment pressure measurement with a gauge, all 4 compartments left lower leg in the operating room. 3. Placement of a negative pressure vacuum assisted closure device, covering greater than 50 cm squared. ANTIBIOTICS: Ancef 2 g IV. IV FLUIDS: See Anesthesia note. SPECIMEN: None. IMPLANTS: Vacuum assisted closure sponge, greater than 50 cm squared was applied to an open skin incision. ESTIMATED BLOOD LOSS: Minimal. COMPLICATIONS: None. INDICATIONS FOR PROCEDURE: This is an unusual case of an otherwise relatively healthy 27-year-old man, who exerted himself physically as part of [employer] training on 07/11/18, and presented to the emergency room with severe left lower leg pain. I was consulted, diagnosed compartment syndrome, likely based on history and exam. I did a compartment pressure testing in the emergency room on 07/11/18 immediately and it showed elevated compartment pressures consistent with a compartment syndrome of the anterior and lateral compartments of the left lower leg. I immediately, urgently, brought the patient then to the operating room. On 07/11, I performed fasciotomies of the anterior and lateral compartments. Intraoperatively, the muscle looked healthy in those 2 compartments. The muscle did not bulge as much as I often see it bulge out of the fascia. The skin and subcutaneous tissue could easily be brought together in a tension free closure. It was very easy to bring subcutaneous layer together and then the skin for a closure, tension free without any vigor whatsoever. The patient was readmitted postoperatively for monitoring. Postoperatively, immediately after surgery and the following day, 07/12/18, the patient was much improved. He had increased active and passive movements, tolerated of the left toes and ankle. Sensation improved significantly, although he still had some tingling or slight decreased sensation over the dorsum of the foot. This is improving with time. The patient continued to improve clinically on history and exam on the morning of 07/13/18. The morning of 07/13/18, during my clinic visit with him, he was particularly comfortable. He was able to demonstrate 5/5 muscle strength with ankle flexion or plantar flexion, dorsiflexion, inversion and eversion without any discomfort. He tolerated passive range of motions at the toes and ankle without any difficulty. I was confident that he was turning the corner and much improved. Similarly, his CK values and his myoglobin had decreased significantly with time since the procedure Saturday. I was happy with his progress. Then on the evening of 07/13/18, I visited the patient's room as I was in the hospital doing another procedure. The patient's pain had increased significantly. He could not easily tolerate passive range of motion distally and his active range of motion was greatly decreased, likely pain avoidant. I saw him twice, 1 hour apart before and after another operation and the patient seemed to worsen just in that time. Therefore, with the patient's clinical exam worsening acutely, and his CK not having improved over 12 hours, I decided that a revision procedure was prudent. This was despite the patient having just eaten. I discussed risks and potential complications of the procedure with the patient. I consented the patient for exploration of the left lower leg after compartment pressure measurement. I consented him for revision fasciotomies anterior and lateral compartments and possible fasciotomies of posterior compartments. I consented him for possible debridement of muscle and possible placement of a negative pressure device. DESCRIPTION OF PROCEDURE: Preoperative written consent. Operative extremity was marked in preoperative holding. The patient was taken back to the operating room and placed supine on operating room table. The patient underwent spinal anesthesia by Dr. Sher. Mini time-out was performed. I next proceeded prior to the prep and drape with my compartment pressure testing. I took 3 pressures from the anterior compartment of the lower leg. I made sure to zero the device each time appropriately. I obtained measurements of 51, 83, and 106 in the anterior compartment. I measured the lateral compartment twice and obtained measurements of 55 and 57. I measured the superficial posterior compartment at 32 and the deep posterior compartment at 28. It should be noted that the patient's blood pressure at the time was 132 systolic/75 diastolic. We then prepped and draped the left lower leg. Surgical time out was performed. The tourniquet had been applied on the left thigh, but it was temporarily elevated during the case. I opened the prior surgical incision site. I removed all prior sutures from the skin and subcutaneous tissue with rongeur and pickups. There was some blood. I noted that the muscle in each of the anterior and lateral compartments did not appear as healthy as it had during Saturday's case, 2 days previous. I irrigated with normal saline. I extended my skin incision several centimeters distally, so that the length of my skin incision was likely just over 20 cm. I palpated the proximal distal extent of my fasciotomy incisions. With my finger, I extended the splits distally of the anterior and lateral compartments and proximally of the lateral compartment. Using scissors I extended the anterior fasciotomy incision proximally. It seemed I had opened the fascial compartments the entire length of the lower leg. I next explored some muscle. There was a small area of muscle in the anterior compartment that had some blackness to it. However, when I debrided, some of it did bleed, so I thought I would let this declare itself and not remove this muscle. Irrigation. It was clear when I used pickups to try to bring the skin edges together that the skin could not comfortably close primarily and this was not my intention any way, but it was remarkable in that it was very different from the case at the end of the case on Saturday, 2 days prior. I shaped a sponge and applied a negative pressure wound VAC sponge to the wound. Larger than 50 cm squared in area. I hooked the wound VAC device up, assured no leak. The patient was lightened off sedation and transferred to the stretcher and brought to the PACU. DISPOSITION: The patient was readmitted to our service postoperatively. He was to receive pain control as needed with IV and oral pain medicine, although as I had discussed with him previously, my hope is that we can wean him off of these sooner rather than later to get a true sense of the level of the patient' s pain. We will continue to follow the patient's CK level and more importantly continue to follow his level of pain into his physical exam to confirm continued improvement. This is an unusual case based on the patient's presence without external trauma, just with the trauma of physical exertion and it is unusual in that he went from being easy to close the skin and subcutaneous tissue off on 07/11/18 to essentially having a compartment syndrome caused by likely the skin and subcutaneous tissue 2 days later. I may consider an MRI of the lower leg to see if there are any possible other factors involved. The patient has not had any posterior complaints in the lower leg nor any posterior tenderness to palpation and his pressures have been low, so we have not yet considered release of those compartments. [id number]/CPS #: [id number] MARII
[2018-07-15 06:11] LABS: Hematocrit 45 % (36-46); Hemoglobin 14.7 g/dL (14.0-18.0); Mean Corpuscular HGB Conc 33 g/dL (31-36); Mean Corpuscular Hemoglobin 25 pg (27-31); Mean Corpuscular Volume 78 fL (80-94); Platelet Count 178 10^3/uL (150-450); Red Blood Count 5.77 10^6 /uL (4.18-5.48); Red Cell Distribution Width 14 % (10.5-15); White Blood Count 5.9 10^3/uL (3.5-10.8)
[2018-07-15 06:33] LABS: Albumin 3.7 g/dL (3.2-5.2); Albumin/Globulin Ratio 1.1 (1-3); Calcium 9.4 mg/dL (8.6-10.3); EGFR African American 127.2 (>60); EGFR Non-African American 105.1 (>60); Globulin 3.3 g/dL (2-4); Potassium 4.3 mmol/L (3.5-5.0); Total Bilirubin 0.4 mg/dL (0.2-1.0)
[2018-07-15] MEDS: oxyCODONE/Acetamin 5/325 MG* TAB PO PRN ×3 (08:52→21:29)
[2018-07-15] MEDS: amLODIPine TAB* 5 MG PO SCH (08:52)
[2018-07-15] MEDS: Cephalexin CAP* 500 MG PO SCH ×3 (08:52→21:30)
--- NOTE | 2018-07-15 13:53 | PN ---
Subjective Date of Service: 07/15/18 Interval History: Pt seen and examined. Meds and labs reviewed. CC: N/A ROS: Denied GASTON/dizziness, F/C, N/V, CP, SOB, increased cough, sputum production , abd pain, diarrhea, constipation, dysuria, myalgias, arthralgias, throat pain , and new skin lesions. The rest of the 14 point ROS are unremarkable. PHYSICAL EXAM: GEN APPEARANCE: Awake, not in acute distress HEENT: NC/AT, PERRLA, moist oral mucosa, (-) throat erythema NECK: Soft, supple, (-) cervical LAD, (-)JVD HEART: S1S2 WNL, RRR, No MRG CHEST: CTA, BL, GAE, No W/R/R ABD: Soft, ND/NT, NABS 4x Q EXT: No C/C/LLE edema w/ wound VAC in place SKIN: Warm to touch PSYCH: No active psychosis, hallucinations, depression, SI/HI Objective Active Medications: Acetaminophen (Tylenol Tab*) 650 mg PO Q8H PRN PRN Reason: PAIN OR TEMPERATURE Amlodipine Besylate (Norvasc Tab*) 10 mg PO DAILY [facility] Last Admin: 07/15/18 08:52 Dose: 10 mg Cephalexin HCl (Keflex Cap*) 500 mg PO TID [facility] Last Admin: 07/15/18 08:52 Dose: 500 mg Hydralazine HCl (Apresoline Iv*) 5 mg IV SLOW PU Q4H PRN PRN Reason: BRADYCARDIA Last Admin: 07/13/18 23:43 Dose: 5 mg Morphine Sulfate (Morphine Inj (Syringe))*) 2 mg IV Q2H PRN PRN Reason: PAIN - SEVERE Last Admin: 07/14/18 00:51 Dose: 2 mg Oxycodone/Acetaminophen (Percocet 5/325 Tab*) 1 tab PO Q4H PRN PRN Reason: PAIN Last Admin: 07/13/18 19:33 Dose: 1 tab Oxycodone/Acetaminophen (Percocet 5/325 Tab*) 2 tab PO Q4H PRN PRN Reason: PAIN - MODERATE Last Admin: 07/15/18 08:52 Dose: 2 tab Vital Signs - 8 hr 07/15/18 07/15/18 07/15/18 07:21 08:00 08:52 Temperature 99.5 F Pulse Rate 95 Respiratory 16 16 Rate Blood Pressure 145/75 (mmHg) O2 Sat by Pulse 98 98 Oximetry 07/15/18 07/15/18 09:00 11:20 Temperature 99.0 F Pulse Rate 107 Respiratory 16 16 Rate Blood Pressure 122/56 (mmHg) O2 Sat by Pulse 100 Oximetry Oxygen Devices in Use Now: None Result Diagrams: 07/15/18 06:00 07/15/18 06:00 Additional Lab and Data: Vital Signs: Temp Pulse Resp BP Pulse Ox 99.8 F 95 14 149/60 97 07/13/18 03:41 07/13/18 03:41 07/13/18 06:25 07/13/18 03:41 07/13/18 03:41 Assess/Plan/Problems-Billing Mr. Severino is a 27 yo male with no significant PMH who was admitted on 07/11/18 with rhabdomyolysis and compartment syndrome after intense workout. - Patient Problems (1) Rhabdomyolysis Current Visit: Yes Status: Acute Code(s): M62.82 - RHABDOMYOLYSIS SNOMED Code(s): 395987070 Comment: -S/P re-exploration of LLE w/wound VAC placement (07/13/18), POD#4 of fasciotomy of LLE. - CK peaked at 21K, now 11K---continues to improve - Creatinine remains normal - Increased IVFs back to 150 ml/hr due to pts spontaneous diuresis -Continue to trend CKs -Continue cold compress and elevation of LLE per ortho and will defer -To return to OR for re-exploration and debridement later this week per ortho will defer (2) Compartment syndrome Current Visit: Yes Status: Acute Code(s): T79.A0XA - COMPARTMENT SYNDROME, UNSPECIFIED, INITIAL ENCOUNTER SNOMED Code(s): 406083973 Comment: - POD # 4 s/p fasciotomy to left lower extremity with Dr. Loera (3) Hypertension Current Visit: Yes Status: Acute Code(s): I10 - ESSENTIAL (PRIMARY) HYPERTENSION SNOMED Code(s): 59844551 Comment: -Well controlled -Continue current regimen and watchful waiting (4) DVT prophylaxis Current Visit: Yes Status: Acute Code(s): CXR7697 - SNOMED Code(s): 754721257 Comment: - Hold per ortho Status and Disposition: -As above
--- NOTE | 2018-07-15 16:23 | PN ---
Progress Note - Progress Note Date of Service: 07/15/18 SOAP: Subjective: []Patient seen at bedside. He is feeling better today stating he has 4/10 pain and has not needed morphine for pain control. Sensation of the left foot remains decreased, unchanged from yesterday. Denies CP, SOB, dizziness, nausea. He was febrile overnight, hovering around 99 today. He has been tachycardic up to 120. Objective: []General: Appears well, NAD LLE: left lower leg with vac suction functioning well. There is no erythema around the incision, vac is draining serosanguinous discharge. All compartments of lower leg are compressible. Sensation is intact to light touch throughout the foot though he continues to have sensation of the dorsum, unchanged from yesterday. He has 5/5 strength of toe flexion and extension. Ankle active dorsiflexion/ plantarflexion is still weak 4/5 with limited ROM. Nonpainful PROM toes and ankle. DP2+, capillary refill less than two seconds distally. Assessment: [] POD 4 left lower leg fasciotomies anterior and lateral compartments with primary skin closure POD 2 exploration left lower leg with VAC closure Compartment syndrome secondary to exercise exertion Severe rhabdomyolysis without impaired kidney function Plan: - Continue to monitor pain level trend - no longer requiring IV morphine - Continue to monitor exam trends (pain with PROM/AROM, sensation dorsal foot in SP/DP distributions) - Continue to monitor CK level trend (helpful given the patient's stoicism and unusual nature of this case) along with myoglobin, chemistries. - Patient will need procedure this week, exchange of VAC sponge, possible primary closure by Dr Childress - Ice and 2 pillow elevation - SCD RLE for DVT prophylaxis - No clear source or elevated temperature. suspect inflammatory reaction to rhabdo rather than infection. Patient is now being covered with Keflex given the open wound, some muscle damage - tachycardia: call out to hospitalists to discuss as pain is currently well controlled Laboratory Last Values WBC 5.9 10^3/uL (3.5-10.8) 07/15/18 06:00 RBC 5.77 10^6 /uL (4.18-5.48) H 07/15/18 06:00 Hgb 14.7 g/dL (14.0-18.0) 07/15/18 06:00 Hct 45 % (36-46) 07/15/18 06:00 MCV 78 fL (80-94) L 07/15/18 06:00 MCH 25 pg (27-31) L 07/15/18 06:00 MCHC 33 g/dL (31-36) 07/15/18 06:00 RDW 14 % (10.5-15) 07/15/18 06:00 Plt Count 178 10^3/uL (150-450) 07/15/18 06:00 MPV 8.0 fL (7.4-10.4) 07/15/18 06:00 Neut % (Auto) 70.2 % 07/14/18 17:41 Lymph % (Auto) 23.4 % 07/14/18 17:41 [place] % (Auto) 5.6 % 07/14/18 17:41 Eos % (Auto) 0.4 % 07/14/18 17:41 Baso % (Auto) 0.4 % 07/14/18 17:41 Absolute Neuts (auto) 5.0 10^3/ul (1.5-7.7) 07/14/18 17:41 Absolute Lymphs (auto) 1.7 10^3/ul (1.0-4.8) 07/14/18 17:41 Absolute Monos (auto) 0.4 10^3/ul (0-0.8) 07/14/18 17:41 Absolute Eos (auto) 0 10^3/ul (0-0.6) 07/14/18 17:41 Absolute Basos (auto) 0 10^3/ul (0-0.2) 07/14/18 17:41 Absolute Nucleated RBC 0 10^3/ul 07/14/18 17:41 Nucleated RBC % 0.3 07/14/18 17:41 Sickle Cell Screen Positive (Negative) A 07/11/18 21:02 INR (Anticoag Therapy) 1.04 (0.77-1.02) H 07/11/18 16:57 APTT 31.8 seconds (26.0-36.3) 07/11/18 16:57 Sodium 134 mmol/L (135-145) L 07/15/18 06:00 Potassium 4.3 mmol/L (3.5-5.0) 07/15/18 06:00 Chloride 100 mmol/L (101-111) L 07/15/18 06:00 Carbon Dioxide 27 mmol/L (22-32) 07/15/18 06:00 Anion Gap 7 mmol/L (2-11) 07/15/18 06:00 BUN 12 mg/dL (6-24) 07/15/18 06:00 Creatinine 0.86 mg/dL (0.67-1.17) 07/15/18 06:00 Est GFR ( Amer) 127.2 (>60) 07/15/18 06:00 Est GFR (Non-Af Amer) 105.1 (>60) 07/15/18 06:00 BUN/Creatinine Ratio 14.0 (8-20) 07/15/18 06:00 Glucose 97 mg/dL (70-100) 07/15/18 06:00 Lactic Acid 1.1 mmol/L (0.5-2.0) 07/13/18 07:15 Calcium 9.4 mg/dL (8.6-10.3) 07/15/18 06:00 Phosphorus 3.0 mg/dL (2.5-5.0) 07/15/18 06:00 Magnesium 2.0 mg/dL (1.9-2.7) 07/15/18 06:00 Total Bilirubin 0.40 mg/dL (0.2-1.0) 07/15/18 06:00 AST 159 U/L (13-39) H 07/15/18 06:00 ALT 37 U/L (7-52) 07/15/18 06:00 Alkaline Phosphatase 32 U/L (34-104) L 07/15/18 06:00 Total Creatine Kinase 7561 U/L (10-223) H 07/15/18 06:00 Myoglobin 100.0 ng/mL (17.4-105.7) 07/15/18 06:00 C-Reactive Protein 1.60 mg/L (<8.01) 07/11/18 11:22 B-Natriuretic Peptide 70 pg/mL (<=100) 07/12/18 14:25 Total Protein 7.0 g/dL (6.4-8.9) 07/15/18 06:00 Albumin 3.7 g/dL (3.2-5.2) 07/15/18 06:00 Globulin 3.3 g/dL (2-4) 07/15/18 06:00 Albumin/Globulin Ratio 1.1 (1-3) 07/15/18 06:00 Urine Color Yellow 07/14/18 17:05 Urine Appearance Clear 07/14/18 17:05 Urine pH 7.0 (5-9) 07/14/18 17:05 Ur Specific [place] 1.011 (1.010-1.030) 07/14/18 17:05 Urine Protein Negative (Negative) 07/14/18 17:05 Urine Ketones 1+ (Negative) A 07/14/18 17:05 Urine Blood Negative (Negative) 07/14/18 17:05 Urine Nitrate Negative (Negative) 07/14/18 17:05 Urine Bilirubin Negative (Negative) 07/14/18 17:05 Urine Urobilinogen Negative (Negative) 07/14/18 17:05 Ur Leukocyte Esterase Negative (Negative) 07/14/18 17:05 Urine Glucose Negative (Negative) 07/14/18 17:05 Temp Pulse Resp BP Pulse Ox 99.2 F 120 16 146/76 97 07/15/18 15:20 07/15/18 15:20 07/15/18 15:36 07/15/18 15:20 07/15/18 16:00
[2018-07-15] MEDS ORDERED: NS 0.9% 1000 ML** 1,000 ML IV ONE (16:45)
--- NOTE | 2018-07-15 20:08 | PN ---
Progress Note - Progress Note Date of Service: 07/15/18 SOAP: Subjective: Pt. reports pain is controlled L leg. Objective: Vital Signs: Temp Pulse Resp BP Pulse Ox 99.2 F 120 16 146/76 97 07/15/18 15:20 07/15/18 15:20 07/15/18 18:10 07/15/18 15:20 07/15/18 16:00 Laboratory Results - last 24 hr 07/11/18 07/14/18 07/15/18 21:02 17:41 06:00 WBC 7.2 RBC 5.83 H Hgb 14.7 Hct 45 MCV 78 L MCH 25 L MCHC 33 RDW 14 Plt Count 183 MPV 8.8 Neut % (Auto) 70.2 Lymph % (Auto) 23.4 [place] % (Auto) 5.6 Eos % (Auto) 0.4 Baso % (Auto) 0.4 Absolute Neuts (auto) 5.0 Absolute Lymphs (auto) 1.7 Absolute Monos (auto) 0.4 Absolute Eos (auto) 0 Absolute Basos (auto) 0 Absolute Nucleated RBC 0 Nucleated RBC % 0.3 Sickle Cell Screen Positive A Sodium 134 L Potassium 4.3 Chloride 100 L Carbon Dioxide 27 Anion Gap 7 BUN 12 Creatinine 0.86 Est GFR ( Amer) 127.2 Est GFR (Non-Af Amer) 105.1 BUN/Creatinine Ratio 14.0 Glucose 97 Calcium 9.4 Phosphorus 3.0 Magnesium 2.0 Total Bilirubin 0.40 AST 159 H ALT 37 Alkaline Phosphatase 32 L Total Creatine Kinase 7561 H Myoglobin 100.0 Total Protein 7.0 Albumin 3.7 Globulin 3.3 Albumin/Globulin Ratio 1.1 07/15/18 06:00 WBC 5.9 RBC 5.77 H Hgb 14.7 Hct 45 MCV 78 L MCH 25 L MCHC 33 RDW 14 Plt Count 178 MPV 8.0 Neut % (Auto) Lymph % (Auto) [place] % (Auto) Eos % (Auto) Baso % (Auto) Absolute Neuts (auto) Absolute Lymphs (auto) Absolute Monos (auto) Absolute Eos (auto) Absolute Basos (auto) Absolute Nucleated RBC Nucleated RBC % Sickle Cell Screen Sodium Potassium Chloride Carbon Dioxide Anion Gap BUN Creatinine Est GFR ( Amer) Est GFR (Non-Af Amer) BUN/Creatinine Ratio Glucose Calcium Phosphorus Magnesium Total Bilirubin AST ALT Alkaline Phosphatase Total Creatine Kinase Myoglobin Total Protein Albumin Globulin Albumin/Globulin Ratio LLE - wound vac intact, +df/ehl but weak. +pf/fhl, patient reports decreased sensation entire foot. 2+ dp pulse. Assessment: 27 yo M s/p fasciotomy for LLE compartment syndrome. Dr. Stahl has been caring for him and is out of town this week. I have assumed his care while Dr. Stahl is out of town. Plan: npo after 6 am on 07/16/18 plan I and D with partial closure, wound vac placement on LLE discussed with patient and he agrees.
[2018-07-15] MEDS: NS 0.9% 1000 ML** 1,000 ML IV SCH (21:30)
[2018-07-16] MEDS: NS 0.9% 1000 ML** 1,000 ML IV SCH (07:30)
[2018-07-16] MEDS: Cephalexin CAP* 500 MG PO SCH ×2 (07:35→14:54)
[2018-07-16] MEDS: oxyCODONE/Acetamin 5/325 MG* TAB PO PRN ×3 (07:35→21:08)
[2018-07-16] MEDS: amLODIPine TAB* 5 MG PO SCH (07:35)
--- NOTE | 2018-07-16 09:21 | PN ---
Subjective Date of Service: 07/16/18 Interval History: Pt is feeling ok today. He states he continues to have discomfort in his L leg but it is manageable. He states his L foot still feels tingly and like the sensation is reduced but he is able to feel light palpation. He denies any SOB. No abdominal pain, constipation/diarrhea. He is urinating frequently. Objective Active Medications: Acetaminophen (Tylenol Tab*) 650 mg PO Q8H PRN PRN Reason: PAIN OR TEMPERATURE Amlodipine Besylate (Norvasc Tab*) 10 mg PO DAILY [facility] Last Admin: 07/16/18 07:35 Dose: 10 mg Cephalexin HCl (Keflex Cap*) 500 mg PO TID [facility] Last Admin: 07/16/18 07:35 Dose: 500 mg Hydralazine HCl (Apresoline Iv*) 5 mg IV SLOW PU Q4H PRN PRN Reason: BRADYCARDIA Last Admin: 07/13/18 23:43 Dose: 5 mg Sodium Chloride (Ns 0.9% 1000 Ml) 1,000 mls @ 100 mls/hr IV PER RATE [facility] Last Admin: 07/16/18 07:30 Dose: 100 mls/hr Morphine Sulfate (Morphine Inj (Syringe))*) 2 mg IV Q2H PRN PRN Reason: PAIN - SEVERE Last Admin: 07/14/18 00:51 Dose: 2 mg Oxycodone/Acetaminophen (Percocet 5/325 Tab*) 1 tab PO Q4H PRN PRN Reason: PAIN Last Admin: 07/13/18 19:33 Dose: 1 tab Oxycodone/Acetaminophen (Percocet 5/325 Tab*) 2 tab PO Q4H PRN PRN Reason: PAIN - MODERATE Last Admin: 07/16/18 07:35 Dose: 2 tab Vital Signs - 8 hr 07/16/18 07/16/18 07/16/18 03:12 07:27 07:35 Temperature 98.5 F 98.8 F Pulse Rate 86 80 Respiratory 16 16 16 Rate Blood Pressure 141/66 126/72 (mmHg) O2 Sat by Pulse 99 100 Oximetry Oxygen Devices in Use Now: None Appearance: Young male lying flat in bed, NAD Eyes: No Scleral Icterus Ears/Nose/Mouth/Throat: Mucous Membranes Moist Respiratory: Symmetrical Chest Expansion and Respiratory Effort, Clear to Auscultation Cardiovascular: NL Sounds; No Murmurs; No JVD, RRR, - - + edema of L LE, DP pulses 2+ bilaterally Abdominal: NL Sounds; No Tenderness; No Distention Extremities: No Clubbing, Cyanosis, - - L lower leg fasciotomy with wound vac in place Skin: No Nodules or Sclerosis Neurological: Alert and Oriented x 3 Result Diagrams: 07/15/18 06:00 07/15/18 06:00 Additional Lab and Data: Vital Signs: Temp Pulse Resp BP Pulse Ox 99.8 F 95 14 149/60 97 07/13/18 03:41 07/13/18 03:41 07/13/18 06:25 07/13/18 03:41 07/13/18 03:41 Microbiology and Other Data: Microbiology 07/14/18 16:31 Aerobic Blood Culture - Preliminary Blood Venous No Growth Day 1 Anaerobic Blood Culture - Preliminary No Growth Day 1 07/14/18 16:31 Aerobic Blood Culture - Preliminary Blood Venous No Growth Day 1 Anaerobic Blood Culture - Preliminary No Growth Day 1 Assess/Plan/Problems-Billing Mr. Severino is a 27 yo male with no significant PMHx who was admitted on 07/11/18 with rhabdomyolysis and compartment syndrome after an intense workout. - Patient Problems (1) Compartment syndrome Current Visit: Yes Status: Acute Code(s): T79.A0XA - COMPARTMENT SYNDROME, UNSPECIFIED, INITIAL ENCOUNTER SNOMED Code(s): 403751060 Comment: Pt is s/p fasciotomy with closure on 07/11/18 (POD#5) and re- exploration, extension of the fasciotomy and wound vac placement on 07/13/18 (POD# 3) for worsened pain. Plan is for the patient to return to the OR today with Dr. Childress for re-exploration, possible debridement, possible partial closure and replacement of wound vac. Continue keflex given the open wound. Continue tyelnol and percocet for pain control. (2) Rhabdomyolysis Current Visit: Yes Status: Acute Code(s): M62.82 - RHABDOMYOLYSIS SNOMED Code(s): 947601609 Comment: CPK peaked at ~21K after fasciotomy and now down to ~7500 as of yesterday. Will continue aggressive IVF hydration. Creatinine has remained stable and in the normal range. Await results from today. As above plan for re- exploration today with Dr. Childress. (3) Hypertension Current Visit: Yes Status: Acute Code(s): I10 - ESSENTIAL (PRIMARY) HYPERTENSION SNOMED Code(s): 79841261 Comment: BP now under acceptable control on amlodipine 5mg daily. Will continue to monitor. (4) DVT prophylaxis Current Visit: Yes Status: Acute Code(s): WLV2176 - SNOMED Code(s): 929095873 Comment: None at this time due to needing to go back to OR (5) Full code status Current Visit: Yes Status: Acute Code(s): Z78.9 - OTHER SPECIFIED HEALTH STATUS SNOMED Code(s): 872864425 Comment: Status and Disposition: .
[2018-07-16 09:49] LABS: Hematocrit 41 % (36-46); Hemoglobin 13.6 g/dL (14.0-18.0); Platelet Count 203 10^3/uL (150-450)
[2018-07-16 10:23] LABS: Calcium 8.8 mg/dL (8.6-10.3)
[2018-07-16 10:24] LABS: Potassium 5.1 mmol/L (3.5-5.0)
[2018-07-16 10:28] LABS: BUN/Creatinine Ratio 14.7 (8-20); EGFR African American 166.8 (>60); EGFR Non-African American 137.9 (>60)
[2018-07-16] MEDS ORDERED: Ondansetron INJ* 2 MG/ML VIAL ONE (11:24)
[2018-07-16] MEDS ORDERED: Dexamethasone TAB* 4 MG PO ONE (11:24)
[2018-07-16] MEDS ORDERED: Buffered Lidocaine 1% SYRIN* 1 ML/SYRINGE INTRADERM ONE (11:24)
[2018-07-16] MEDS ORDERED: Famotidine IV* 10 MG/ML 2 ML (20 mg) IV ONE (11:24)
[2018-07-16] MEDS: Morphine INJ* 2 MG/ML 1 ML SYRINGE (TWO MG - NEW SYRINGE VERSION) IV PRN ×2 (11:56→15:46)
[2018-07-16] MEDS ORDERED: Midazolam* 1 MG/ML 5 ML VIAL (5 MG) ONE (13:18)
[2018-07-16] MEDS ORDERED: fentaNYL* 50 MCG/ML 2 ML VIAL (100 MCG VIAL) ONE (13:18)
[2018-07-16] MEDS ORDERED: Ondansetron ODT TAB* 4 MG ONE (13:20)
[2018-07-16] MEDS ORDERED: Dexamethasone TAB* 4 MG ONE (13:21)
[2018-07-16] MEDS ORDERED: Famotidine IV* 10 MG/ML 2 ML (20 mg) ONE (13:21)
[2018-07-16] MEDS: Lactated Ringers 1000 ML Bag* 1,000 ML IV SCH ×2 (13:31→17:58)
[2018-07-16] MEDS ORDERED: EPINEPHRINE 1 MG/ML 1 ML VIAL ONE (14:00)
[2018-07-16] MEDS ORDERED: Bacitracin INJECTION* 50,000 UNITS ONE ×2 (14:01→14:38)
[2018-07-16] MEDS ORDERED: Bupivacaine 0.5%* 50 ML VIAL ONE (14:01)
[2018-07-16] MEDS ORDERED: ceFAZolin 2 GM in NS PREMIX(*) 2 GM/100 ML BAG IVPB ONE (14:05)
[2018-07-16] MEDS ORDERED: fentaNYL* 50 MCG/ML 2 ML VIAL (100 MCG VIAL) IV PRN (14:46)
[2018-07-16] MEDS ORDERED: Naloxone* 0.4 MG/ML 1 ML VIAL IV PRN (14:46)
[2018-07-16] MEDS ORDERED: oxyCODONE TAB* 5 MG TAB PO PRN (14:46)
[2018-07-16] MEDS ORDERED: HYDROmorphone INJ1* 1 MG/ML SYRINGE IV PRN (14:46)
[2018-07-16] MEDS ORDERED: Phenylephrine 40 MCG/ML SYRINGE ONE (14:50)
[2018-07-16] MEDS ORDERED: Propofol* 10 MG/ML 20 ML BTL ONE (14:50)
[2018-07-16] MEDS ORDERED: Lidocaine 2% PF * 5 ML VIAL ONE (14:50)
[2018-07-16] MEDS ORDERED: HYDROmorphone INJ1* 1 MG/ML SYRINGE ONE (14:51)
[2018-07-16] MEDS ORDERED: Morphine 4 MG/ML VIAL (1 ml) 4 MG/ML VIAL ONE (15:44)
[2018-07-16] MEDS: Docusate CAP* 100 MG PO PRN (16:39)
[2018-07-16] MEDS: Magnesium Hydroxide LIQ* 30 ML UDC PO PRN (16:40)
[2018-07-16] MEDS: ceFAZolin 1 GM* Q8H (AddVan) IVPB SCH ×2 (23:36)
--- NOTE | 2018-07-17 00:24 | OP ---
DATE OF OPERATION: 07/16/18 - ROOM #[id number] DATE OF : 86 SURGEON: Juanita Childress MD. [employer]: TK Donovan. Ms. Mcqueen did help throughout the procedure with preparation of the leg, wound retraction, manipulation of the wound, and wound closure with VAC placement. ANESTHESIOLOGIST: Dr. Sher. ANESTHESIA: General. PRE-OP DIAGNOSIS: Left knee open wound from prior compartment syndrome fasciotomy. POST-OP DIAGNOSIS: Left knee open wound from prior compartment syndrome fasciotomy. OPERATIVE PROCEDURE: Left leg open wound irrigation and debridement with partial wound closure and wound VAC placement. COMPLICATIONS: None. ESTIMATED BLOOD LOSS: Less than 25 cc. SPECIMEN: None. BRIEF HISTORY/INDICATIONS: Mr. Severino is a 27-year-old member of the [employer], who developed acute compartment syndrome in the left leg approximately one week ago. He has been treated by Dr. Stahl, and underwent two surgical irrigations with wound VAC placement at his last irrigation and debridement. Dr. Stahl did ask me for me to assume care of the patient for an additional washout, possible closure, or additional wound VAC placement mid week as he is out of town for the week, and I did agree to take care of this patient. The patient and I discussed the risks and benefits of the procedure and wishes to proceed. He understood I would attempt to close his fasciotomy; and, if this is not possible, I would place another wound VAC. INTRAOPERATIVE FINDINGS: Intraoperatively, the patient had soft compartment with red viable muscle. No obvious purulence. No obvious necrotic tissue. The muscles were quite edematous and there was no chance of completely closing the fasciotomy incisions. Approximately 4 cm of the incision was closed and another wound VAC was placed. DESCRIPTION OF PROCEDURE: Mr. Severino was identified in the preanesthesia unit. His left lower extremity was marked as the correct operative site. Informed consent was obtained, was signed and placed in the chart. The patient was taken to the operating room and placed under anesthesia. Left lower extremity was prepped and draped in the usual sterile fashion. Preop time-out was made to correctly identify the patient, side, and site. Appropriate perioperative antibiotics were given within 1 hour of incision. The patient's prior wound VAC was carefully removed. Vessel loops and dany were carefully removed. The wound was copiously irrigated with 9 L of sterile saline. This irrigation was to gravity rather than pulsatile irrigation. There was minimal necrotic tissue around the wound. The muscle was edematous but red and contractile. PDS suture was used to close the ends of the fasciotomy. Majority of this could not be closed. The wound VAC sponge was carefully measured to the wound diameters and cut to fit the wounds. Vessel loops were placed over the sponge to hold the sponge in the place. The wound VAC plastic was carefully placed as well as the phalange adaptor piece. Wound VAC was inflated to 125 and had good suck to it without any air leaks. The patient's anesthesia was reversed without difficulty. He was taken to the PACU in stable condition. Intended weightbearing will be weightbearing as tolerated. The patient should have aggressive physical therapy and work on dorsiflexion and plantar-flexion. It is my opinion that the patient will likely need skin grafting as it is unlikely that his fasciotomy incision will be able to be closed primarily. [id number]/CPS #: [id number] MTDGeorge
[2018-07-17] MEDS: oxyCODONE/Acetamin 5/325 MG* TAB PO PRN ×5 (02:15→23:26)
[2018-07-17] MEDS: Lactated Ringers 1000 ML Bag* 1,000 ML IV SCH (02:16)
[2018-07-17] MEDS: ceFAZolin 1 GM* Q8H (AddVan) IVPB SCH ×6 (06:20→22:59)
[2018-07-17 06:50] LABS: Hematocrit 40 % (36-46); Hemoglobin 12.9 g/dL (14.0-18.0); Mean Corpuscular HGB Conc 33 g/dL (31-36); Mean Corpuscular Hemoglobin 25 pg (27-31); Mean Corpuscular Volume 78 fL (80-94); Mean Platelet Volume 7.7 fL (7.4-10.4); Platelet Count 233 10^3/uL (150-450); Red Blood Count 5.09 10^6 /uL (4.18-5.48); Red Cell Distribution Width 14 % (10.5-15); White Blood Count 6.2 10^3/uL (3.5-10.8)
[2018-07-17 07:05] LABS: BUN/Creatinine Ratio 14.1 (8-20); Calcium 9.4 mg/dL (8.6-10.3); EGFR African American 158.7 (>60); EGFR Non-African American 131.2 (>60); Potassium 4.3 mmol/L (3.5-5.0)
[2018-07-17 07:22] LABS: Myoglobin 24.1 ng/mL (17.4-105.7)
[2018-07-17] MEDS: amLODIPine TAB* 5 MG PO SCH (08:15)
[2018-07-17] MEDS: Docusate CAP* 100 MG PO PRN (08:17)
[2018-07-17] MEDS: Magnesium Hydroxide LIQ* 30 ML UDC PO PRN (08:17)
--- NOTE | 2018-07-17 10:38 | PN ---
Subjective Date of Service: 07/17/18 Interval History: Pt is feeling ok. He states his pain has been stable around a 5-6/10. He states the pain has been manageable. He denies any SOB. No abdominal pain/constipation/ diarrhea. He tells me he was never screened for sickle cell in the past as far as he knows. Objective Active Medications: Acetaminophen (Tylenol Tab*) 650 mg PO Q8H PRN PRN Reason: PAIN OR TEMPERATURE Amlodipine Besylate (Norvasc Tab*) 10 mg PO DAILY [facility] Last Admin: 07/17/18 08:15 Dose: 10 mg Docusate Sodium (Colace Cap*) 100 mg PO BID PRN PRN Reason: CONSTIPATION Last Admin: 07/17/18 08:17 Dose: 100 mg Hydralazine HCl (Apresoline Iv*) 5 mg IV SLOW PU Q4H PRN PRN Reason: TACHYCARDIA Last Admin: 07/13/18 23:43 Dose: 5 mg Lactated Ringer's (Lactated Ringers 1000 Ml Bag*) 1,000 mls @ 125 mls/hr IV PER RATE [facility] Last Admin: 07/17/18 02:16 Dose: 125 mls/hr Cefazolin Sodium 1 gm/ Sodium (Chloride) 50 mls @ 200 mls/hr IVPB Q8H [facility] Last Admin: 07/17/18 06:20 Dose: 200 mls/hr Magnesium Hydroxide (Milk Of Magnesia Liq*) 30 ml PO BID PRN PRN Reason: CONSTIPATION Last Admin: 07/17/18 08:17 Dose: 30 ml Morphine Sulfate (Morphine Inj (Syringe))*) 2 mg IV Q2H PRN PRN Reason: PAIN - SEVERE Last Admin: 07/16/18 15:46 Dose: 2 mg Oxycodone/Acetaminophen (Percocet 5/325 Tab*) 1 tab PO Q4H PRN PRN Reason: PAIN Last Admin: 07/13/18 19:33 Dose: 1 tab Oxycodone/Acetaminophen (Percocet 5/325 Tab*) 2 tab PO Q4H PRN PRN Reason: PAIN - MODERATE Last Admin: 07/17/18 06:26 Dose: 2 tab Vital Signs - 8 hr 07/17/18 07/17/18 07/17/18 04:08 06:21 06:26 Temperature 98.2 F Pulse Rate 76 Respiratory 16 17 17 Rate Blood Pressure 125/63 (mmHg) O2 Sat by Pulse 97 Oximetry 07/17/18 07/17/18 07/17/18 07:19 08:00 08:07 Temperature 98.4 F Pulse Rate 82 Respiratory 18 18 18 Rate Blood Pressure 134/61 (mmHg) O2 Sat by Pulse 100 100 Oximetry Oxygen Devices in Use Now: None Appearance: Young male lying in bed, NAD Eyes: No Scleral Icterus Ears/Nose/Mouth/Throat: Mucous Membranes Moist Respiratory: Symmetrical Chest Expansion and Respiratory Effort, Clear to Auscultation Cardiovascular: NL Sounds; No Murmurs; No JVD, RRR Abdominal: NL Sounds; No Tenderness; No Distention Extremities: No Clubbing, Cyanosis, - - L lower leg in surgical dressing, wound vac in place Skin: No Nodules or Sclerosis Neurological: Alert and Oriented x 3 Result Diagrams: 07/17/18 06:23 07/17/18 06:23 Additional Lab and Data: Vital Signs: Temp Pulse Resp BP Pulse Ox 99.8 F 95 14 149/60 97 07/13/18 03:41 07/13/18 03:41 07/13/18 06:25 07/13/18 03:41 07/13/18 03:41 Microbiology and Other Data: Microbiology 07/14/18 16:31 Aerobic Blood Culture - Preliminary Blood Venous No Growth Day 1 Anaerobic Blood Culture - Preliminary No Growth Day 1 07/14/18 16:31 Aerobic Blood Culture - Preliminary Blood Venous No Growth Day 1 Anaerobic Blood Culture - Preliminary No Growth Day 1 Assess/Plan/Problems-Billing Mr. Severino is a 27 yo male with no significant PMHx who was admitted on 07/11/18 with rhabdomyolysis and compartment syndrome after an intense workout. - Patient Problems (1) Compartment syndrome Current Visit: Yes Status: Acute Code(s): T79.A0XA - COMPARTMENT SYNDROME, UNSPECIFIED, INITIAL ENCOUNTER SNOMED Code(s): 846908015 Comment: Pt is s/p fasciotomy with closure on 07/11/18 (POD#6) and re- exploration, extension of the fasciotomy and wound vac placement on 07/13/18 (POD# 4) for worsened pain. Back to the OR 07/16/18 (POD#1) for partial closure and wound vac placement. Only about 4cm of the wound was able to be closed yesterday. Will likely go back to OR in 2-3 days for potential further closure of the wound. Continue keflex given the open wound. Continue tyelnol and percocet for pain control. (2) Rhabdomyolysis Current Visit: Yes Status: Acute Code(s): M62.82 - RHABDOMYOLYSIS SNOMED Code(s): 179827152 Comment: CPK peaked at ~21K after fasciotomy and now down to ~2800. Stop IVF as pt has been eating/drinking ok. Creatinine has remained stable and in the normal range. (3) Sickle cell trait Current Visit: Yes Status: Acute Code(s): D57.3 - SICKLE-CELL TRAIT SNOMED Code(s): 14054197 Comment: Pt had a positive sickle cell screen. Hemoglobin electropheresis was reflexed. Await results. Likely pt with sickle cell trait. It is unlikely that this is related to the compartment syndrome. (4) Hypertension Current Visit: Yes Status: Acute Code(s): I10 - ESSENTIAL (PRIMARY) HYPERTENSION SNOMED Code(s): 55990325 Comment: BP now under acceptable control on amlodipine 5mg daily. Will continue to monitor. (5) DVT prophylaxis Current Visit: Yes Status: Acute Code(s): WXQ9724 - SNOMED Code(s): 882275506 Comment: SCD to R leg (6) Full code status Current Visit: Yes Status: Acute Code(s): Z78.9 - OTHER SPECIFIED HEALTH STATUS SNOMED Code(s): 520044931 Comment: Status and Disposition: .
--- NOTE | 2018-07-17 14:36 | PN ---
Progress Note - Progress Note Date of Service: 07/17/18 SOAP: Subjective: []Pt seen at bedside, he feels well and reports improvement of sensation on the dorsum of his left foot. Denies CP, SOB, dizziness, nausea. Objective: []General: Well appearing, NAD LLE: Vac suctioning well, no erythema surrounding and no discharge. DF, EHL intact and improving though still weak. PF, FHL intact. Sensation still decreased on dorsum of the foot, reported as improved. DP2+, capillary refill less than two seconds distally Calves supple and nontender without erythema, edema or palpable cords Assessment: []POD 1 sp repeat I&D, vac placement left lower leg. Patient is s/p compartment syndrome w fasciotomy 07/11 return to OR 07/13 left lower leg Plan: WBAT, SCD on right leg If falling into plantarflexion needs podus boot, though he is resting his ankle at 90 degrees laying in bed without it Ancef 1 g IV q 8 hr while wound remains open Plan for back to OR Saturday with Dr Stahl Vital Signs Temp 98.7 F 07/17/18 11:35 Pulse 90 07/17/18 11:35 Resp 16 07/17/18 11:35 BP 126/58 07/17/18 11:35 Pulse Ox 100 07/17/18 11:35 Intake & Output 07/16/18 07/17/18 07/17/18 18:59 06:59 18:59 Intake Total 2805 1935 1634 Output Total 1145 1850 925 Balance 1660 85 709 Intake: IV Fluids 2525 980 999 LR 980 999 NORMAL SALINE 1625 lr 900 IVPB 55 55 ABX - CEFAZOLIN 55 55 Oral 280 900 580 Output: Urine 1145 1850 925 Laboratory Last Values WBC 6.2 10^3/uL (3.5-10.8) 07/17/18 06:23 RBC 5.09 10^6 /uL (4.18-5.48) 07/17/18 06:23 Hgb 12.9 g/dL (14.0-18.0) L 07/17/18 06:23 Hct 40 % (36-46) 07/17/18 06:23 MCV 78 fL (80-94) L 07/17/18 06:23 MCH 25 pg (27-31) L 07/17/18 06:23 MCHC 33 g/dL (31-36) 07/17/18 06:23 RDW 14 % (10.5-15) 07/17/18 06:23 Plt Count 233 10^3/uL (150-450) 07/17/18 06:23 MPV 7.7 fL (7.4-10.4) 07/17/18 06:23 Neut % (Auto) 70.2 % 07/14/18 17:41 Lymph % (Auto) 23.4 % 07/14/18 17:41 [place] % (Auto) 5.6 % 07/14/18 17:41 Eos % (Auto) 0.4 % 07/14/18 17:41 Baso % (Auto) 0.4 % 07/14/18 17:41 Absolute Neuts (auto) 5.0 10^3/ul (1.5-7.7) 07/14/18 17:41 Absolute Lymphs (auto) 1.7 10^3/ul (1.0-4.8) 07/14/18 17:41 Absolute Monos (auto) 0.4 10^3/ul (0-0.8) 07/14/18 17:41 Absolute Eos (auto) 0 10^3/ul (0-0.6) 07/14/18 17:41 Absolute Basos (auto) 0 10^3/ul (0-0.2) 07/14/18 17:41 Absolute Nucleated RBC 0 10^3/ul 07/14/18 17:41 Nucleated RBC % 0.3 07/14/18 17:41 Sickle Cell Screen Positive (Negative) A 07/11/18 21:02 INR (Anticoag Therapy) 1.04 (0.77-1.02) H 07/11/18 16:57 APTT 31.8 seconds (26.0-36.3) 07/11/18 16:57 Sodium 136 mmol/L (135-145) 07/17/18 06:23 Potassium 4.3 mmol/L (3.5-5.0) 07/17/18 06:23 Chloride 102 mmol/L (101-111) 07/17/18 06:23 Carbon Dioxide 27 mmol/L (22-32) 07/17/18 06:23 Anion Gap 7 mmol/L (2-11) 07/17/18 06:23 BUN 10 mg/dL (6-24) 07/17/18 06:23 Creatinine 0.71 mg/dL (0.67-1.17) 07/17/18 06:23 Est GFR ( Amer) 158.7 (>60) 07/17/18 06:23 Est GFR (Non-Af Amer) 131.2 (>60) 07/17/18 06:23 BUN/Creatinine Ratio 14.1 (8-20) 07/17/18 06:23 Glucose 109 mg/dL (70-100) H 07/17/18 06:23 Lactic Acid 1.1 mmol/L (0.5-2.0) 07/13/18 07:15 Calcium 9.4 mg/dL (8.6-10.3) 07/17/18 06:23 Phosphorus 3.0 mg/dL (2.5-5.0) 07/15/18 06:00 Magnesium 2.0 mg/dL (1.9-2.7) 07/15/18 06:00 Total Bilirubin 0.40 mg/dL (0.2-1.0) 07/15/18 06:00 AST 159 U/L (13-39) H 07/15/18 06:00 ALT 37 U/L (7-52) 07/15/18 06:00 Alkaline Phosphatase 32 U/L (34-104) L 07/15/18 06:00 Total Creatine Kinase 2841 U/L (10-223) H 07/17/18 06:23 Myoglobin 24.1 ng/mL (17.4-105.7) 07/17/18 06:23 C-Reactive Protein 1.60 mg/L (<8.01) 07/11/18 11:22 B-Natriuretic Peptide 70 pg/mL (<=100) 07/12/18 14:25 Total Protein 7.0 g/dL (6.4-8.9) 07/15/18 06:00 Albumin 3.7 g/dL (3.2-5.2) 07/15/18 06:00 Globulin 3.3 g/dL (2-4) 07/15/18 06:00 Albumin/Globulin Ratio 1.1 (1-3) 07/15/18 06:00 Urine Color Yellow 07/14/18 17:05 Urine Appearance Clear 07/14/18 17:05 Urine pH 7.0 (5-9) 07/14/18 17:05 Ur Specific [place] 1.011 (1.010-1.030) 07/14/18 17:05 Urine Protein Negative (Negative) 07/14/18 17:05 Urine Ketones 1+ (Negative) A 07/14/18 17:05 Urine Blood Negative (Negative) 07/14/18 17:05 Urine Nitrate Negative (Negative) 07/14/18 17:05 Urine Bilirubin Negative (Negative) 07/14/18 17:05 Urine Urobilinogen Negative (Negative) 07/14/18 17:05 Ur Leukocyte Esterase Negative (Negative) 07/14/18 17:05 Urine Glucose Negative (Negative) 07/14/18 17:05
[2018-07-17 15:14] LABS: Variant Hemoglobin 36.2 = Hb S %
[2018-07-17] MEDS: Morphine INJ* 2 MG/ML 1 ML SYRINGE (TWO MG - NEW SYRINGE VERSION) IV PRN (21:02)
[2018-07-18] MEDS: ceFAZolin 1 GM* Q8H (AddVan) IVPB SCH ×6 (06:23→22:14)
[2018-07-18] MEDS: oxyCODONE/Acetamin 5/325 MG* TAB PO PRN ×4 (06:28→20:49)
[2018-07-18 06:54] LABS: Hematocrit 39 % (36-46); Hemoglobin 12.5 g/dL (14.0-18.0); Mean Platelet Volume 8.3 fL (7.4-10.4); Platelet Count 233 10^3/uL (150-450)
[2018-07-18] MEDS: amLODIPine TAB* 5 MG PO SCH (08:48)
--- NOTE | 2018-07-18 12:31 | PN ---
Progress Note - Progress Note Date of Service: 07/18/18 SOAP: Subjective: []Patient seen at bedside, pain well managed. He is holding is foot in neutral. No new complaints. Understands he is scheduled for further surgery Saturday with Dr. Stahl. Objective: [] Vital Signs Temp 98.1 F 07/18/18 07:22 Pulse 70 07/18/18 07:22 Resp 16 07/18/18 11:36 BP 131/58 07/18/18 07:22 Pulse Ox 100 07/18/18 07:22 Intake & Output 07/17/18 07/18/18 07/18/18 18:59 06:59 18:59 Intake Total 1729 685 Output Total 925 300 Balance 804 385 Intake: IV Fluids 1094 ABX - CEFAZOLIN 55 LR 999 NORMAL SALINE 40 IVPB 55 ABX - CEFAZOLIN 55 Oral 580 685 Output: Urine 925 300 Other: Estimated Void Large # Bowel Movements 1 Estimated Stool Amount Large # Voids 1 Laboratory Results - last 24 hr 07/11/18 07/18/18 21:02 06:29 Hgb 12.5 L Hct 39 Plt Count 233 MPV 8.3 Hemoglobin A 60.1 L Hemoglobin A2 3.7 H Hemoglobin F () 0.0 Variant Hemoglobin 36.2 = hb s Hgb ELP Interp See comment Dressings and wound vac intact to left lower extremity foot is at 90 degrees at rest in bed, elevated on pillows mild foot edema, but has sensation to plantar and dorsal foot able to move toes Assessment: []s/p acute compartment syndrome with open fasciotomy and wound vac placement X2 Plan: []Elevation on pillows while in bed May WBAT LLE Podus boot if foot falls into plantarflexion Wound vac Back to OR 07/21 with Maribeth
--- NOTE | 2018-07-18 15:22 | PN ---
Subjective Date of Service: 07/18/18 Interval History: Pt is feeling well. He states his pain remains a 5/10. It is manageable. He denies any SOB. No issues with abdominal pain or constipation. Objective Active Medications: Acetaminophen (Tylenol Tab*) 650 mg PO Q8H PRN PRN Reason: PAIN OR TEMPERATURE Amlodipine Besylate (Norvasc Tab*) 10 mg PO DAILY [facility] Last Admin: 07/18/18 08:48 Dose: 10 mg Docusate Sodium (Colace Cap*) 100 mg PO BID PRN PRN Reason: CONSTIPATION Last Admin: 07/17/18 08:17 Dose: 100 mg Hydralazine HCl (Apresoline Iv*) 5 mg IV SLOW PU Q4H PRN PRN Reason: TACHYCARDIA Last Admin: 07/13/18 23:43 Dose: 5 mg Lactated Ringer's (Lactated Ringers 1000 Ml Bag*) 1,000 mls @ 125 mls/hr IV PER RATE [facility] Last Admin: 07/17/18 02:16 Dose: 125 mls/hr Cefazolin Sodium 1 gm/ Sodium (Chloride) 50 mls @ 200 mls/hr IVPB Q8H [facility] Last Admin: 07/18/18 06:23 Dose: 200 mls/hr Magnesium Hydroxide (Milk Of Magnesia Liq*) 30 ml PO BID PRN PRN Reason: CONSTIPATION Last Admin: 07/17/18 08:17 Dose: 30 ml Morphine Sulfate (Morphine Inj (Syringe))*) 2 mg IV Q2H PRN PRN Reason: PAIN - SEVERE Last Admin: 07/17/18 21:02 Dose: 2 mg Oxycodone/Acetaminophen (Percocet 5/325 Tab*) 1 tab PO Q4H PRN PRN Reason: PAIN Last Admin: 07/13/18 19:33 Dose: 1 tab Oxycodone/Acetaminophen (Percocet 5/325 Tab*) 2 tab PO Q4H PRN PRN Reason: PAIN - MODERATE Last Admin: 07/18/18 11:36 Dose: 2 tab Vital Signs - 8 hr 07/18/18 07/18/18 07/18/18 07:22 08:45 08:46 Temperature 98.1 F Pulse Rate 70 Respiratory 16 16 16 Rate Blood Pressure 131/58 (mmHg) O2 Sat by Pulse 100 Oximetry 07/18/18 11:36 Temperature 98.9 F Pulse Rate 72 Respiratory 18 Rate Blood Pressure 152/63 (mmHg) O2 Sat by Pulse 100 Oximetry Oxygen Devices in Use Now: None Appearance: Young male lying in bed, NAD Eyes: No Scleral Icterus Ears/Nose/Mouth/Throat: Mucous Membranes Moist Respiratory: Symmetrical Chest Expansion and Respiratory Effort, Clear to Auscultation Cardiovascular: NL Sounds; No Murmurs; No JVD, RRR, - - 1-2+ edema of L ankle/ foot Abdominal: NL Sounds; No Tenderness; No Distention Extremities: No Clubbing, Cyanosis Skin: No Nodules or Sclerosis, - - wound vac in place on L lower leg Neurological: Alert and Oriented x 3 Result Diagrams: 07/18/18 06:29 07/17/18 06:23 Additional Lab and Data: Vital Signs: Temp Pulse Resp BP Pulse Ox 99.8 F 95 14 149/60 97 07/13/18 03:41 07/13/18 03:41 07/13/18 06:25 07/13/18 03:41 07/13/18 03:41 Microbiology and Other Data: Microbiology 07/14/18 16:31 Aerobic Blood Culture - Preliminary Blood Venous No Growth Day 1 Anaerobic Blood Culture - Preliminary No Growth Day 1 07/14/18 16:31 Aerobic Blood Culture - Preliminary Blood Venous No Growth Day 1 Anaerobic Blood Culture - Preliminary No Growth Day 1 Assess/Plan/Problems-Billing Mr. Severino is a 27 yo male with no significant PMHx who was admitted on 07/11/18 with rhabdomyolysis and compartment syndrome after an intense workout. - Patient Problems (1) Compartment syndrome Current Visit: Yes Status: Acute Code(s): T79.A0XA - COMPARTMENT SYNDROME, UNSPECIFIED, INITIAL ENCOUNTER SNOMED Code(s): 209121568 Comment: Pt is s/p fasciotomy with closure on 07/11/18 (POD#7) and re- exploration, extension of the fasciotomy and wound vac placement on 07/13/18 (POD# 5) for worsened pain. Back to the OR 07/16/18 (POD#2) for partial closure and wound vac placement. Back to the OR on 07/21/18-? skin grafting. Continue pain control. Weight bearing as tolerated. Continue keflex. (2) Rhabdomyolysis Current Visit: Yes Status: Acute Code(s): M62.82 - RHABDOMYOLYSIS SNOMED Code(s): 228482781 Comment: Repeat labs tomorrow. Resolving. (3) Sickle cell trait Current Visit: Yes Status: Acute Code(s): D57.3 - SICKLE-CELL TRAIT SNOMED Code(s): 49832809 Comment: Pt with confirmed sickle cell trait. UptoDate information provided to the patient. There is a slight increased risk of rhabdomyolysis in individuals with sickle cell trait. (4) Hypertension Current Visit: Yes Status: Acute Code(s): I10 - ESSENTIAL (PRIMARY) HYPERTENSION SNOMED Code(s): 02504264 Comment: Continue amlodipine to 5mg daily. (5) DVT prophylaxis Current Visit: Yes Status: Acute Code(s): SKE0094 - SNOMED Code(s): 480010381 Comment: SCD to R leg (6) Full code status Current Visit: Yes Status: Acute Code(s): Z78.9 - OTHER SPECIFIED HEALTH STATUS SNOMED Code(s): 773899147 Comment: Status and Disposition: .
[2018-07-19] MEDS: oxyCODONE/Acetamin 5/325 MG* TAB PO PRN ×5 (01:30→23:31)
[2018-07-19 06:24] LABS: Hematocrit 39 % (36-46); Hemoglobin 12.6 g/dL (14.0-18.0); Mean Platelet Volume 7.6 fL (7.4-10.4); Platelet Count 272 10^3/uL (150-450)
[2018-07-19] MEDS: ceFAZolin 1 GM* Q8H (AddVan) IVPB SCH ×6 (06:36→23:31)
[2018-07-19] MEDS: amLODIPine TAB* 5 MG PO SCH (10:32)
--- NOTE | 2018-07-19 10:52 | PN ---
Progress Note - Progress Note Date of Service: 07/19/18 SOAP: Subjective: Pt is doing well. Pain is controlled. Denies CP/SOB, F/C or N/T Objective: PE- 27 y/o WDWN M NAD A&Ox3 LLE- Dressings and wound vac intact, foot is at 90 degrees at rest in bed, elevated on pillows mild foot edema, SILT plantar and dorsal foot, +F/E toes Vital Signs Temp Pulse Resp BP Pulse Ox 98.5 F 73 16 119/66 100 07/19/18 07:25 07/19/18 07:25 07/19/18 10:31 07/19/18 07:25 07/19/18 07:25 Laboratory Results - last 24 hr 07/11/18 07/19/18 07/19/18 21:02 05:37 05:37 Hgb 12.6 L Hct 39 Plt Count 272 MPV 7.6 Hemoglobin S Positive Total Creatine Kinase 751 H Assessment: []s/p left acute compartment syndrome with open fasciotomy and wound vac placement X2 Plan: []Elevation on pillows while in bed May WBAT LLE Podus boot if foot falls into plantarflexion Wound vac Back to OR 07/21 with Maribeth
--- NOTE | 2018-07-19 16:23 | PN ---
Subjective Date of Service: 07/19/18 Interval History: Denies any complaints Objective Active Medications: Acetaminophen (Tylenol Tab*) 650 mg PO Q8H PRN PRN Reason: PAIN OR TEMPERATURE Amlodipine Besylate (Norvasc Tab*) 10 mg PO DAILY [facility] Last Admin: 07/19/18 10:32 Dose: 10 mg Docusate Sodium (Colace Cap*) 100 mg PO BID PRN PRN Reason: CONSTIPATION Last Admin: 07/17/18 08:17 Dose: 100 mg Hydralazine HCl (Apresoline Iv*) 5 mg IV SLOW PU Q4H PRN PRN Reason: TACHYCARDIA Last Admin: 07/13/18 23:43 Dose: 5 mg Lactated Ringer's (Lactated Ringers 1000 Ml Bag*) 1,000 mls @ 125 mls/hr IV PER RATE [facility] Last Admin: 07/17/18 02:16 Dose: 125 mls/hr Cefazolin Sodium 1 gm/ Sodium (Chloride) 50 mls @ 200 mls/hr IVPB Q8H [facility] Last Admin: 07/19/18 15:01 Dose: 200 mls/hr Magnesium Hydroxide (Milk Of Magnesia Liq*) 30 ml PO BID PRN PRN Reason: CONSTIPATION Last Admin: 07/17/18 08:17 Dose: 30 ml Morphine Sulfate (Morphine Inj (Syringe))*) 2 mg IV Q2H PRN PRN Reason: PAIN - SEVERE Last Admin: 07/17/18 21:02 Dose: 2 mg Oxycodone/Acetaminophen (Percocet 5/325 Tab*) 1 tab PO Q4H PRN PRN Reason: PAIN Last Admin: 07/13/18 19:33 Dose: 1 tab Oxycodone/Acetaminophen (Percocet 5/325 Tab*) 2 tab PO Q4H PRN PRN Reason: PAIN - MODERATE Last Admin: 07/19/18 10:31 Dose: 2 tab Vital Signs - 8 hr 07/19/18 07/19/18 07/19/18 10:31 11:33 16:09 Temperature 98.4 F Pulse Rate 83 Respiratory 16 17 18 Rate Blood Pressure 143/67 (mmHg) O2 Sat by Pulse 100 Oximetry Oxygen Devices in Use Now: None Eyes: No Scleral Icterus Ears/Nose/Mouth/Throat: NL Teeth, Lips, Gums Neck: NL Appearance and Movements; NL JVP Respiratory: Symmetrical Chest Expansion and Respiratory Effort, Clear to Auscultation Cardiovascular: NL Sounds; No Murmurs; No JVD Extremities: - - Edema present, Dressing Neurological: Alert and Oriented x 3 Result Diagrams: 07/19/18 05:37 07/17/18 06:23 Additional Lab and Data: Vital Signs: Temp Pulse Resp BP Pulse Ox 99.8 F 95 14 149/60 97 07/13/18 03:41 07/13/18 03:41 07/13/18 06:25 07/13/18 03:41 07/13/18 03:41 Microbiology and Other Data: Microbiology 07/14/18 16:31 Aerobic Blood Culture - Preliminary Blood Venous No Growth Day 1 Anaerobic Blood Culture - Preliminary No Growth Day 1 07/14/18 16:31 Aerobic Blood Culture - Preliminary Blood Venous No Growth Day 1 Anaerobic Blood Culture - Preliminary No Growth Day 1 Assess/Plan/Problems-Billing Mr. Severino is a 27 yo male with no significant PMHx who was admitted on 07/11/18 with rhabdomyolysis and compartment syndrome after an intense workout. - Patient Problems (1) Compartment syndrome Current Visit: Yes Status: Acute Code(s): T79.A0XA - COMPARTMENT SYNDROME, UNSPECIFIED, INITIAL ENCOUNTER SNOMED Code(s): 230875686 Comment: Pt is s/p fasciotomy with closure on 07/11/18 (POD#7) and re- exploration, extension of the fasciotomy and wound vac placement on 07/13/18 (POD# 5) for worsened pain. Back to the OR 07/16/18 (POD#2) for partial closure and wound vac placement. Back to the OR on 07/21/18-? skin grafting. Continue pain control. Weight bearing as tolerated. Continue keflex. (2) Full code status Current Visit: Yes Status: Acute Code(s): Z78.9 - OTHER SPECIFIED HEALTH STATUS SNOMED Code(s): 997279809 Comment: (3) Hypertension Current Visit: Yes Status: Acute Code(s): I10 - ESSENTIAL (PRIMARY) HYPERTENSION SNOMED Code(s): 09973355 Comment: Continue amlodipine to 5mg daily. (4) Rhabdomyolysis Current Visit: Yes Status: Acute Code(s): M62.82 - RHABDOMYOLYSIS SNOMED Code(s): 784867639 Comment: Repeat labs tomorrow. Resolving. In the setting of intense exercise, still somewhat atypical Will also check ERNST, anti avelina, scleroderma ab,aldolase and UA protein to eval for an autoimmune trigger Can consider a myositis panel in the future if warranted Sickle cell trait+ (5) Sickle cell trait Current Visit: Yes Status: Acute Code(s): D57.3 - SICKLE-CELL TRAIT SNOMED Code(s): 56862407 Comment: Pt with confirmed sickle cell trait. UptoDate information provided to the patient. There is a slight increased risk of rhabdomyolysis in individuals with sickle cell trait. (6) DVT prophylaxis Current Visit: Yes Status: Acute Code(s): UDE7032 - SNOMED Code(s): 445290913 Comment: SCD to R leg Status and Disposition: .
[2018-07-19 16:51] LABS: Urine Appearance Clear; Urine Bilirubin Negative (Negative); Urine Blood Negative (Negative); Urine Color Yellow; Urine Glucose Negative (Negative); Urine Ketones Negative (Negative); Urine Nitrite Negative (Negative); Urine Protein Negative (Negative); Urine Urobilinogen Negative (Negative)
[2018-07-19] MEDS: Morphine INJ* 2 MG/ML 1 ML SYRINGE (TWO MG - NEW SYRINGE VERSION) IV PRN (19:34)
[2018-07-20] MEDS: oxyCODONE/Acetamin 5/325 MG* TAB PO PRN ×5 (03:49→20:26)
[2018-07-20 05:01] LABS: ABS Basophils 0 10^3/ul (0-0.2); ABS Eosinophils 0.1 10^3/ul (0-0.6); ABS Lymphocytes 2.4 10^3/ul (1.0-4.8); ABS Monocytes 0.3 10^3/ul (0-0.8); ABS Neutrophils 3.2 10^3/ul (1.5-7.7); ABS Nucleated RBC 0 10^3/ul; Eosinophil % 1.1 %; Hematocrit 40 % (36-46); Hemoglobin 13.2 g/dL (14.0-18.0); Lymphocyte % 39.6 %; Mean Corpuscular HGB Conc 33 g/dL (31-36); Mean Corpuscular Hemoglobin 25 pg (27-31); Mean Corpuscular Volume 77 fL (80-94); Mean Platelet Volume 7.2 fL (7.4-10.4); Nucleated Red Blood Cells % 0.2; Platelet Count 333 10^3/uL (150-450); Red Blood Count 5.26 10^6 /uL (4.18-5.48); Red Cell Distribution Width 14 % (10.5-15); White Blood Count 6.1 10^3/uL (3.5-10.8)
[2018-07-20 05:17] LABS: BUN/Creatinine Ratio 16.5 (8-20); Calcium 9.2 mg/dL (8.6-10.3); EGFR African American 140.3 (>60); Potassium 4.2 mmol/L (3.5-5.0)
[2018-07-20] MEDS: ceFAZolin 1 GM* Q8H (AddVan) IVPB SCH ×6 (07:07→22:40)
[2018-07-20] MEDS: amLODIPine TAB* 5 MG PO SCH (07:43)
[2018-07-20] MEDS: Magnesium Hydroxide LIQ* 30 ML UDC PO PRN (07:47)
[2018-07-20] MEDS: Docusate CAP* 100 MG PO PRN (07:47)
[2018-07-20 08:47] LABS: UR Microalbumin (mg/L) < 15.0 mg/L; Urine TP Concentration 5 mg/dL
--- NOTE | 2018-07-20 10:27 | PN ---
Subjective Date of Service: 07/20/18 Interval History: Denies any complaints.Reports mild improvement in pain Objective Active Medications: Acetaminophen (Tylenol Tab*) 650 mg PO Q8H PRN PRN Reason: PAIN OR TEMPERATURE Amlodipine Besylate (Norvasc Tab*) 10 mg PO DAILY [facility] Last Admin: 07/20/18 07:43 Dose: 10 mg Docusate Sodium (Colace Cap*) 100 mg PO BID PRN PRN Reason: CONSTIPATION Last Admin: 07/20/18 07:47 Dose: 100 mg Hydralazine HCl (Apresoline Iv*) 5 mg IV SLOW PU Q4H PRN PRN Reason: TACHYCARDIA Last Admin: 07/13/18 23:43 Dose: 5 mg Lactated Ringer's (Lactated Ringers 1000 Ml Bag*) 1,000 mls @ 125 mls/hr IV PER RATE [facility] Last Admin: 07/17/18 02:16 Dose: 125 mls/hr Cefazolin Sodium 1 gm/ Sodium (Chloride) 50 mls @ 200 mls/hr IVPB Q8H [facility] Last Admin: 07/20/18 07:07 Dose: 200 mls/hr Magnesium Hydroxide (Milk Of [place] Liq*) 30 ml PO BID PRN PRN Reason: CONSTIPATION Last Admin: 07/20/18 07:47 Dose: 30 ml Morphine Sulfate (Morphine Inj (Syringe))*) 2 mg IV Q2H PRN PRN Reason: PAIN - SEVERE Last Admin: 07/19/18 19:34 Dose: 2 mg Oxycodone/Acetaminophen (Percocet 5/325 Tab*) 1 tab PO Q4H PRN PRN Reason: PAIN Last Admin: 07/13/18 19:33 Dose: 1 tab Oxycodone/Acetaminophen (Percocet 5/325 Tab*) 2 tab PO Q4H PRN PRN Reason: PAIN - MODERATE Last Admin: 07/20/18 07:43 Dose: 2 tab Vital Signs - 8 hr 07/20/18 07/20/18 07/20/18 03:20 03:49 05:45 Temperature 98.4 F Pulse Rate 80 Respiratory 16 16 16 Rate Blood Pressure 132/55 (mmHg) O2 Sat by Pulse 98 Oximetry 07/20/18 07/20/18 07/20/18 07:43 07:58 10:22 Temperature 98.4 F Pulse Rate 71 Respiratory 18 16 16 Rate Blood Pressure 147/65 (mmHg) O2 Sat by Pulse 100 Oximetry Oxygen Devices in Use Now: None Eyes: No Scleral Icterus Ears/Nose/Mouth/Throat: NL Teeth, Lips, Gums Neck: NL Appearance and Movements; NL JVP Respiratory: Symmetrical Chest Expansion and Respiratory Effort Cardiovascular: NL Sounds; No Murmurs; No JVD Abdominal: NL Sounds; No Tenderness; No Distention Extremities: No Edema, - - able to wiggle toes, dressing intact, sensation present Neurological: Alert and Oriented x 3 Result Diagrams: 07/20/18 04:48 07/20/18 04:48 Additional Lab and Data: Vital Signs: Temp Pulse Resp BP Pulse Ox 99.8 F 95 14 149/60 97 07/13/18 03:41 07/13/18 03:41 07/13/18 06:25 07/13/18 03:41 07/13/18 03:41 Microbiology and Other Data: Microbiology 07/14/18 16:31 Aerobic Blood Culture - Preliminary Blood Venous No Growth Day 1 Anaerobic Blood Culture - Preliminary No Growth Day 1 07/14/18 16:31 Aerobic Blood Culture - Preliminary Blood Venous No Growth Day 1 Anaerobic Blood Culture - Preliminary No Growth Day 1 Assess/Plan/Problems-Billing Mr. Severino is a 27 yo male with no significant PMHx who was admitted on 07/11/18 with rhabdomyolysis and compartment syndrome after an intense workout. - Patient Problems (1) Compartment syndrome Current Visit: Yes Status: Acute Code(s): T79.A0XA - COMPARTMENT SYNDROME, UNSPECIFIED, INITIAL ENCOUNTER SNOMED Code(s): 633264624 Comment: Pt is s/p fasciotomy with closure on 07/11/18 (POD#7) and re- exploration, extension of the fasciotomy and wound vac placement on 07/13/18 (POD# 5) for worsened pain. Back to the OR 07/16/18 (POD#2) for partial closure and wound vac placement. Back to the OR on 07/21/18. Continue pain control. Weight bearing as tolerated. Continue keflex. (2) Rhabdomyolysis Current Visit: Yes Status: Acute Code(s): M62.82 - RHABDOMYOLYSIS SNOMED Code(s): 260443724 Comment: Repeat labs tomorrow. Resolving. In the setting of intense exercise, still somewhat atypical Will also check ERNST, anti avelina, scleroderma ab,aldolase and UA protein to eval for an autoimmune trigger Can consider a myositis panel in the future if warranted Sickle cell trait+ (3) Hypertension Current Visit: Yes Status: Acute Code(s): I10 - ESSENTIAL (PRIMARY) HYPERTENSION SNOMED Code(s): 31888762 Comment: Continue amlodipine to 5mg daily. (4) Sickle cell trait Current Visit: Yes Status: Acute Code(s): D57.3 - SICKLE-CELL TRAIT SNOMED Code(s): 53475661 Comment: Pt with confirmed sickle cell trait. UptoDate information provided to the patient. There is a slight increased risk of rhabdomyolysis in individuals with sickle cell trait. (5) DVT prophylaxis Current Visit: Yes Status: Acute Code(s): UHI8822 - SNOMED Code(s): 456707758 Comment: SCD to R leg (6) Full code status Current Visit: Yes Status: Acute Code(s): Z78.9 - OTHER SPECIFIED HEALTH STATUS SNOMED Code(s): 660300765 Comment: Status and Disposition: .
--- NOTE | 2018-07-20 10:50 | PN ---
Progress Note - Progress Note Date of Service: 07/20/18 SOAP: Subjective: Pt is doing well. Pain controlled. Denies Cp/SOB, calf pain or N/T. Objective: PE- 27 y/o WDWN M NAD A&Ox3 LLE- wound vac in place and functioning properly, dressing c/d/i, leg elevated, foot resting at neutral, able to F/E toes, SILT distally Vital Signs Temp Pulse Resp BP Pulse Ox 98.4 F 71 16 147/65 100 07/20/18 07:58 07/20/18 07:58 07/20/18 10:22 07/20/18 07:58 07/20/18 07:58 Laboratory Results - last 24 hr 07/19/18 07/20/18 07/20/18 16:14 04:48 04:48 WBC 6.1 RBC 5.26 Hgb 13.2 L Hct 40 MCV 77 L MCH 25 L MCHC 33 RDW 14 Plt Count 333 MPV 7.2 L Neut % (Auto) 52.8 Lymph % (Auto) 39.6 [place] % (Auto) 5.7 Eos % (Auto) 1.1 Baso % (Auto) 0.8 Absolute Neuts (auto) 3.2 Absolute Lymphs (auto) 2.4 Absolute Monos (auto) 0.3 Absolute Eos (auto) 0.1 Absolute Basos (auto) 0 Absolute Nucleated RBC 0 Nucleated RBC % 0.2 Sodium 134 L Potassium 4.2 Chloride 102 Carbon Dioxide 27 Anion Gap 5 BUN 13 Creatinine 0.79 Est GFR ( Amer) 140.3 Est GFR (Non-Af Amer) 116.0 BUN/Creatinine Ratio 16.5 Glucose 101 H Calcium 9.2 Total Creatine Kinase 494 H Urine Color Yellow Urine Appearance Clear Urine pH 6.0 Ur Specific [place] 1.020 Urine Protein Negative Urine Ketones Negative Urine Blood Negative Urine Nitrate Negative Urine Bilirubin Negative Urine Urobilinogen Negative Ur Leukocyte Esterase Negative Ur Random Microalbumin Ur Creatinine mg/dL Ur Creatinine Concen Microalb/Creat Ratio Ur Total Protein Conc Urine Glucose Negative 07/20/18 08:00 WBC RBC Hgb Hct MCV MCH MCHC RDW Plt Count MPV Neut % (Auto) Lymph % (Auto) [place] % (Auto) Eos % (Auto) Baso % (Auto) Absolute Neuts (auto) Absolute Lymphs (auto) Absolute Monos (auto) Absolute Eos (auto) Absolute Basos (auto) Absolute Nucleated RBC Nucleated RBC % Sodium Potassium Chloride Carbon Dioxide Anion Gap BUN Creatinine Est GFR ( Amer) Est GFR (Non-Af Amer) BUN/Creatinine Ratio Glucose Calcium Total Creatine Kinase Urine Color Urine Appearance Urine pH Ur Specific [place] Urine Protein Urine Ketones Urine Blood Urine Nitrate Urine Bilirubin Urine Urobilinogen Ur Leukocyte Esterase Ur Random Microalbumin < 15.0 Ur Creatinine mg/dL 127.90 Ur Creatinine Concen 127.90 Microalb/Creat Ratio TNP Ur Total Protein Conc 5 Urine Glucose Assessment: []s/p left acute compartment syndrome with open fasciotomy and wound vac placement X2 Plan: []Elevation on pillows while in bed May WBAT LLE Podus boot if foot falls into plantarflexion Wound vac Back to OR 07/21 with Maribeth NPO after midnight for surgery tomorrow
[2018-07-21] MEDS: oxyCODONE/Acetamin 5/325 MG* TAB PO PRN ×3 (00:53→22:22)
[2018-07-21 05:25] LABS: ABS Basophils 0 10^3/ul (0-0.2); ABS Eosinophils 0 10^3/ul (0-0.6); ABS Monocytes 0.4 10^3/ul (0-0.8); ABS Nucleated RBC 0 10^3/ul; Eosinophil % 0.7 %; Hematocrit 42 % (36-46); Hemoglobin 14.1 g/dL (14.0-18.0); Lymphocyte % 30.1 %; Mean Corpuscular HGB Conc 33 g/dL (31-36); Mean Corpuscular Hemoglobin 25 pg (27-31); Mean Corpuscular Volume 77 fL (80-94); Mean Platelet Volume 7.3 fL (7.4-10.4); Nucleated Red Blood Cells % 0.2; Platelet Count 371 10^3/uL (150-450); Red Blood Count 5.52 10^6 /uL (4.18-5.48); Red Cell Distribution Width 14 % (10.5-15); White Blood Count 6.5 10^3/uL (3.5-10.8)
[2018-07-21 05:41] LABS: BUN/Creatinine Ratio 18.9 (8-20); Calcium 9.5 mg/dL (8.6-10.3); EGFR African American 120.7 (>60); EGFR Non-African American 99.8 (>60); Potassium 4.3 mmol/L (3.5-5.0)
[2018-07-21] MEDS: ceFAZolin 1 GM* Q8H (AddVan) IVPB SCH ×6 (06:40→22:24)
[2018-07-21] MEDS: amLODIPine TAB* 5 MG PO SCH (08:52)
[2018-07-21] MEDS: Morphine INJ* 2 MG/ML 1 ML SYRINGE (TWO MG - NEW SYRINGE VERSION) IV PRN ×3 (12:14→22:47)
[2018-07-21] MEDS ORDERED: Mineral Oil Sterile, TOPICAL* 25 ML BTL ONE (15:47)
[2018-07-21] MEDS ORDERED: Bupivacaine 0.5% W/EPI SDV* 30 ML VIAL ONE ×2 (15:47→19:04)
--- NOTE | 2018-07-21 16:48 | PN ---
Progress Note - Progress Note Date of Service: 07/21/18 SOAP: Subjective: []Pt seen at bedside. He feels well without CP, SOB, dizziness, nausea, fever or chills. Objective: []General: NAD LLE: Vac suctioning well. No erythema surrounding wound, lower leg is compressible. DF remains weak, +PF. DP2+ Assessment: []s/p left acute compartment syndrome with open fasciotomy and wound vac placement X2 Plan: []Patient aware and agreeable to OR TODAY WITH Dr Stahl for I&D, skin graft LLE
[2018-07-21] MEDS ORDERED: Midazolam* 1 MG/ML 5 ML VIAL (5 MG) ONE (17:34)
[2018-07-21] MEDS ORDERED: Chloroprocaine 2%* 20 ML VIAL ONE (17:43)
[2018-07-21] MEDS ORDERED: ceFAZolin 1 GM in Dextrose (*) 1 GM/50 ML BAG IVPB ONE (17:46)
[2018-07-21] MEDS ORDERED: Phenylephrine 40 MCG/ML SYRINGE ONE (18:17)
[2018-07-21] MEDS ORDERED: Phenylephrine 10 MG/ML VIAL* 1 ML VIAL ONE (18:17)
[2018-07-21] MEDS ORDERED: Ondansetron INJ* 2 MG/ML VIAL IV PRN (18:35)
[2018-07-21] MEDS ORDERED: Naloxone* 0.4 MG/ML 1 ML VIAL IV PRN (18:35)
[2018-07-21] MEDS ORDERED: fentaNYL* 50 MCG/ML 2 ML VIAL (100 MCG VIAL) IV PRN (18:35)
[2018-07-21] MEDS ORDERED: HYDROmorphone INJ1* 1 MG/ML SYRINGE IV PRN (18:35)
--- NOTE | 2018-07-21 18:48 | CONSULT ---
Subjective Interval History: No events overnight. Pt denies new fevers, chills. No worsening of pain. To go to OR today for skin graft. Review of Systems - Measurements Intake and Output: Intake and Output Last 24 Hours 07/19/18 07/20/18 07/21/18 07/22/18 06:59 06:59 06:59 06:59 Intake Total 1050 1068 370 154 Output Total 2375 1965 1160 300 Balance -1325 -897 -790 -146 Weight 157 lb Intake: IV Fluids 60 50 NORMAL SALINE 60 50 IVPB 108 104 ABX - CEFAZOLIN 108 104 Oral 1050 900 370 Output: Wound Vac 425 Urine 1950 1965 1160 300 Other: # Bowel Movements 0 0 Estimated Stool Amount Medium Objective Active Medications: Acetaminophen (Tylenol Tab*) 650 mg PO Q8H PRN PRN Reason: PAIN OR TEMPERATURE Amlodipine Besylate (Norvasc Tab*) 10 mg PO DAILY [facility] Last Admin: 07/21/18 08:52 Dose: 10 mg Docusate Sodium (Colace Cap*) 100 mg PO BID PRN PRN Reason: CONSTIPATION Last Admin: 07/20/18 07:47 Dose: 100 mg Fentanyl Citrate (Fentanyl*) 25 mcg IV Q2M PRN PRN Reason: PAIN - MODERATE Hydralazine HCl (Apresoline Iv*) 5 mg IV SLOW PU Q4H PRN PRN Reason: TACHYCARDIA Last Admin: 07/13/18 23:43 Dose: 5 mg Hydromorphone HCl (Dilaudid Inj1s*) 0.5 mg IV Q10M PRN PRN Reason: PAIN - SEVERE Lactated Ringer's (Lactated Ringers 1000 Ml Bag*) 1,000 mls @ 125 mls/hr IV PER RATE [facility] Last Admin: 07/17/18 02:16 Dose: 125 mls/hr Cefazolin Sodium 1 gm/ Sodium (Chloride) 50 mls @ 200 mls/hr IVPB Q8H [facility] Last Admin: 07/21/18 14:37 Dose: 200 mls/hr Magnesium Hydroxide (Milk Of Magnesia Liq*) 30 ml PO BID PRN PRN Reason: CONSTIPATION Last Admin: 07/20/18 07:47 Dose: 30 ml Morphine Sulfate (Morphine Inj (Syringe))*) 2 mg IV Q2H PRN PRN Reason: PAIN - SEVERE Last Admin: 07/21/18 12:14 Dose: 2 mg Naloxone HCl (Narcan*) 0.08 mg IV Q2M PRN PRN Reason: severe induced resp depression Ondansetron HCl (Zofran Inj*) 4 mg IV ONCE PRN PRN Reason: NAUSEA/VOMITING Oxycodone/Acetaminophen (Percocet 5/325 Tab*) 1 tab PO Q4H PRN PRN Reason: PAIN Last Admin: 07/13/18 19:33 Dose: 1 tab Oxycodone/Acetaminophen (Percocet 5/325 Tab*) 2 tab PO Q4H PRN PRN Reason: PAIN - MODERATE Last Admin: 07/21/18 06:46 Dose: 2 tab Vital Signs - 8 hr 07/21/18 07/21/18 07/21/18 12:11 12:14 15:31 Temperature 99 F 99.1 F Pulse Rate 78 75 Respiratory 16 16 16 Rate Blood Pressure 123/67 139/77 (mmHg) O2 Sat by Pulse 100 100 Oximetry Oxygen Devices in Use Now: None Result Diagrams: 07/21/18 05:14 07/21/18 05:14 Additional Lab and Data: Vital Signs: Temp Pulse Resp BP Pulse Ox 99.8 F 95 14 149/60 97 07/13/18 03:41 07/13/18 03:41 07/13/18 06:25 07/13/18 03:41 07/13/18 03:41 Microbiology and Other Data: Microbiology 07/14/18 16:31 Aerobic Blood Culture - Preliminary Blood Venous No Growth Day 1 Anaerobic Blood Culture - Preliminary No Growth Day 1 07/14/18 16:31 Aerobic Blood Culture - Preliminary Blood Venous No Growth Day 1 Anaerobic Blood Culture - Preliminary No Growth Day 1 Assessment/Plan - Billing Mr. Severino is a 27 yo male with no significant PMHx who was admitted on 07/11/18 with rhabdomyolysis and compartment syndrome after an intense workout. Now s/p fasciotomy with closure (07/11), re-exploration, extension of fasciotomy and wound vac placement (07/13) due to worsened pain, partial closure (07/16) with continued wound vac. Now pending skin graft. - cont Keflex - CK peaked at 18K, now downtrended appropriately - renal function remains normal - autoimmune labs pending - slight increase in rhabdo risk for this patient with sickle cell trait HTN: continue amlodipine Thank you for this consult.
[2018-07-21] MEDS ORDERED: Propofol* 10 MG/ML 20 ML BTL ONE (18:58)
[2018-07-21] MEDS: Lactated Ringers 1000 ML Bag* 1,000 ML IV SCH (23:23)
--- NOTE | 2018-07-22 01:51 | OP ---
DATE OF OPERATION: 07/21/18 - ROOM #340 DATE OF : 86 SURGEON: Ayush Stahl MD ASSISTANT MANAGER OF OPERATIONS: TK Donovan. A physician regulatory affairs assistant was required for the length of the case for help with positioning, instrumentation, and closure. ANESTHESIOLOGIST: Dr. Fredy Villalobos. ANESTHESIA: Spinal anesthesia. Local anesthesia consisting of 25 cc of injected Marcaine with epinephrine in subcutaneous tissue and 15 cc I placed topically over the skin graft harvest site after harvest. ANTIBIOTICS: Ancef 1 g IV. The patient has been receiving Ancef 1 g IV q.8 hours. It had been at least 4 hours since the previous dose, but not yet 8 hours and so I decided on 1 g Ancef IV rather than 2 g. PRE-OP DIAGNOSES: 1. Left lower leg open wound. 2. Status post left lower leg fasciotomies, anterior and lateral compartments, initially with a primary closure secondarily with closure with a wound VAC sponge, status post multiple debridements. 3. Left lower leg initial acute traumatic/exertional compartment syndrome, anterior and lateral compartments, rhabdomyolysis. POST-OP DIAGNOSES: 1. Left lower leg open wound. 2. Status post left lower leg fasciotomies, anterior and lateral compartments, initially with a primary closure secondarily with closure with a wound VAC sponge, status post multiple debridements. 3. Left lower leg initial acute traumatic/exertional compartment syndrome, anterior and lateral compartments, rhabdomyolysis. OPERATIVE PROCEDURE: 1. Left lower leg split-thickness skin grafting for a defect approximately 19 x 7.5 cm in dimension. 2. Left lower leg irrigation and debridement open wound. 3. Denhoff of split-thickness skin graft from the left anterolateral thigh. [id number] TIME EQUIVALENT OR LENGTH OF PROCEDURE: 49 minutes. SPECIMEN: None. IMPLANTS: None. ESTIMATED BLOOD LOSS: Minimal. COMPLICATIONS: None. INDICATIONS FOR PROCEDURE: The patient is a 27-year-old man, who first presented to [facility] with severe left lower leg pain. Meeting him in the emergency room, I immediately diagnosed him with a compartment syndrome based on history and exam. I urgently obtained compartment pressures and then urgently brought the patient to surgery for a two compartment fasciotomy of the anterior and lateral compartments of the left lower leg. At the time of the first procedure, the patient tolerated easily a primary repair of the skin and subcutaneous tissues. This was done without any tension whatsoever. I anticipated that given the tension free repair but this would be sufficient and that the diagnosis of compartment syndrome was caught early enough to avoid requiring a 2 stage procedure. The patient did very well postoperatively, but then on postoperative day 2, he developed a worsening of symptoms. CK level also flat lined or slightly elevated. I therefore brought the patient to the operating room. Extended what were already very lengthy fasciotomy incisions. More importantly instead of primarily closing the skin and subcutaneous tissues, I placed a VAC sponge. Measurement of compartment pressures prior to skin incision did provide documentation for persistent elevated pressures. A partner of jana performed an irrigation and debridement of the left lower leg and then the patient presented today for closure or split thickness skin grafting. I discussed preoperatively the possible outcomes today including primary closure or split thickness skin grafting. I thought the skin grafting was much more likely due to the size of the patient's wound. I discussed risks and potential complications with the patient including bleeding, infection, nerve or blood vessel injury, failure of healing of the wound, persistent weakness left lower extremity, need for future procedure. DESCRIPTION OF PROCEDURE: The patient signed a written consent in preoperative holding. Operative extremity was marked in preoperative holding. The patient was taken back to the operating room and placed supine on operating room table. The patient underwent a spinal anesthetic nerve block by Dr. Villalobos of Anesthesia. The patient was then sedated as well. We removed the VAC sponge dressing from the patient's left lower leg. The left lower extremity was prepped and draped up to the groin. Formal surgical time- out called. Next, I irrigated the wound with between 3 and 4 L of irrigation. I debrided likely some subcutaneous tissue with a curette as well as some muscle. I removed some minimal amount of muscle from the anterior lateral compartments that looked poor of color and did not bleed. Surrounding muscles certainly bled , although there was not significant spasm with Bovie electrocautery. After a very minimal amount of debridement in muscle, again I irrigated the wound with fluid using cystoscopy tubing. I measured the dimensions of the wound. The wound was oval in shape, widest at the mid section and narrowest at most proximal and most distal. I measured the length to be 19 cm. I measured the width to be 7.5 cm. I marked a flat portion of the proximal and anterolateral left thigh with a marking pen with the dimensions of 19 x 7.5 cm. I next chose a blade width. The closest blade width, slightly wider than 7.5 cm was the 3 inch blade. I chose that. I chose my width as 0.02 inches. I arrived at this by starting at 0.015. I then tested the width or depth of the blade with the tip of a #15 knife blade. This may expand the depth of the blade to 0.02 inches. Then using a motorized [employer]s dermatome, I next removed my skin graft. I used minimal oil prior to this taking of graft. I next used a 3-in-1 mesher to mesh my graft. I completed some of these holes with a #15 blade. I next placed the graft into the left lower leg wound after drying the wound out. I stapled it in place around its periphery as well as putting several dany centrally. I removed a small amount of excess graft. Proximally over the thigh, while placing my graft distally, I placed sponges over the wound and it had been soaked in Marcaine with epinephrine. I removed this, washed the wound and then placed a Xeroform. Over the lower leg wound site, I placed 2 Xeroform slightly bold up. I then placed multiple 4x4s and then a Kerlix followed by an ABD and Kerlix distally. Proximally, I placed several ABD dressings and then Kerlix. I finished both dressings with Coban. The patient was lightened of sedation and brought to the PACU. DISPOSITION: The patient will be discharged home when medically stable. The patient is to use crutches at all times with only a minimal amount of weightbearing to allow graft incorporation. The patient will be on Ancef for 24 hours post-operatively followed by a short course of Keflex for infection prophylaxis. The patient will leave on both dressings over the thigh and lower leg. He will maintain these dry. If they become saturated, they would be overwrapped. The patient will follow up with me in clinic approximately 7 days postoperatively for a dressing change and inspection of the take of the split- thickness skin graft. [id number]/[facility] #: [id number] MARII
[2018-07-22] MEDS: oxyCODONE/Acetamin 5/325 MG* TAB PO PRN ×5 (02:37→22:06)
[2018-07-22] MEDS: Lactated Ringers 1000 ML Bag* 1,000 ML IV SCH ×3 (03:10→23:10)
[2018-07-22] MEDS: ceFAZolin 1 GM* Q8H (AddVan) IVPB SCH ×6 (06:21→22:57)
[2018-07-22 06:49] LABS: Hematocrit 37 % (36-46); Hemoglobin 12.2 g/dL (14.0-18.0)
[2018-07-22 07:06] LABS: BUN/Creatinine Ratio 18.9 (8-20); Calcium 8.8 mg/dL (8.6-10.3); EGFR African American 120.7 (>60); EGFR Non-African American 99.8 (>60); Potassium 4.1 mmol/L (3.5-5.0)
[2018-07-22] MEDS: amLODIPine TAB* 5 MG PO SCH (07:57)
--- NOTE | 2018-07-22 09:55 | PN ---
Progress Note - Progress Note Date of Service: 07/22/18 SOAP: Subjective: []Patient seen and examined at bedside. He required IV morphine yesterday for pain control, today pain is controlled with percocet. Denies fever, chills, CP, SOB, dizziness or nausea. Objective: []General: Appears well, NAD LLE: Thigh and calf dressing both CDI without any surrounding erythema and without discharge. Lower leg remains compressible. Nonpainful passive flexion/ extension of digits/ankle. DF remains weak though intact, DF improves with encouragement. PF intact. Sensation intact to light touch throughout the foot and digits with some tingling sensation described over the dorsum medially. Capillary refill less than two seconds distally. Assessment: []POD 1 s/p skin graft of fasciotomy site following acute compartment syndrome of left lower leg Plan: []WBAT with crutches, limit walking on LLE but may bear weight as needed to mobilize with crutches. No need for continued formal PT/OT Keep dressing CDI until follow up visit Ready for DC from ortho standpoint Follow up with Dr Stahl in 1 week 1g Q 8 hr IV ancef until discharge then 5 days of 500 mg keflex q8 hr Vital Signs Temp 99.5 F 07/22/18 07:28 Pulse 77 07/22/18 07:28 Resp 16 07/22/18 07:57 BP 133/62 07/22/18 07:28 Pulse Ox 98 07/22/18 07:28 Intake & Output 07/21/18 07/22/18 07/22/18 18:59 06:59 18:59 Intake Total 154 1005 1043 Output Total 300 280 200 Balance -146 725 843 Weight 157 lb Intake: IV Fluids 50 905 988 ABX - CEFAZOLIN 55 LR 988 NORMAL SALINE 50 NS 50ML, Cefazolin 1G 50 lr 800 IVPB 104 55 ABX - CEFAZOLIN 104 55 Oral 100 Output: Urine 300 280 200 Laboratory Last Values WBC 6.5 10^3/uL (3.5-10.8) 07/21/18 05:14 RBC 5.52 10^6 /uL (4.18-5.48) H 07/21/18 05:14 Hgb 12.2 g/dL (14.0-18.0) L 07/22/18 06:27 Hct 37 % (36-46) 07/22/18 06:27 MCV 77 fL (80-94) L 07/21/18 05:14 MCH 25 pg (27-31) L 07/21/18 05:14 MCHC 33 g/dL (31-36) 07/21/18 05:14 RDW 14 % (10.5-15) 07/21/18 05:14 Plt Count 371 10^3/uL (150-450) 07/21/18 05:14 MPV 7.3 fL (7.4-10.4) L 07/21/18 05:14 Neut % (Auto) 62.1 % 07/21/18 05:14 Lymph % (Auto) 30.1 % 07/21/18 05:14 [place] % (Auto) 6.7 % 07/21/18 05:14 Eos % (Auto) 0.7 % 07/21/18 05:14 Baso % (Auto) 0.4 % 07/21/18 05:14 Absolute Neuts (auto) 4.0 10^3/ul (1.5-7.7) 07/21/18 05:14 Absolute Lymphs (auto) 2.0 10^3/ul (1.0-4.8) 07/21/18 05:14 Absolute Monos (auto) 0.4 10^3/ul (0-0.8) 07/21/18 05:14 Absolute Eos (auto) 0 10^3/ul (0-0.6) 07/21/18 05:14 Absolute Basos (auto) 0 10^3/ul (0-0.2) 07/21/18 05:14 Absolute Nucleated RBC 0 10^3/ul 07/21/18 05:14 Nucleated RBC % 0.2 07/21/18 05:14 Sickle Cell Screen Positive (Negative) A 07/11/18 21:02 Hemoglobin A 60.1 % (95.8-98.0) L 07/11/18 21:02 Hemoglobin A2 3.7 % (2.0-3.3) H 07/11/18 21:02 Hemoglobin F () 0.0 % (0.0-0.9) 07/11/18 21:02 Hemoglobin S Positive 07/11/18 21:02 Variant Hemoglobin 36.2 = hb s % 07/11/18 21:02 Hgb ELP Interp See comment 07/11/18 21:02 INR (Anticoag Therapy) 1.04 (0.77-1.02) H 07/11/18 16:57 APTT 31.8 seconds (26.0-36.3) 07/11/18 16:57 Sodium 136 mmol/L (135-145) 07/22/18 06:27 Potassium 4.1 mmol/L (3.5-5.0) 07/22/18 06:27 Chloride 104 mmol/L (101-111) 07/22/18 06:27 Carbon Dioxide 26 mmol/L (22-32) 07/22/18 06:27 Anion Gap 6 mmol/L (2-11) 07/22/18 06:27 BUN 17 mg/dL (6-24) 07/22/18 06:27 Creatinine 0.90 mg/dL (0.67-1.17) 07/22/18 06:27 Est GFR ( Amer) 120.7 (>60) 07/22/18 06:27 Est GFR (Non-Af Amer) 99.8 (>60) 07/22/18 06:27 BUN/Creatinine Ratio 18.9 (8-20) 07/22/18 06:27 Glucose 94 mg/dL (70-100) 07/22/18 06:27 Lactic Acid 1.1 mmol/L (0.5-2.0) 07/13/18 07:15 Calcium 8.8 mg/dL (8.6-10.3) 07/22/18 06:27 Phosphorus 3.0 mg/dL (2.5-5.0) 07/15/18 06:00 Magnesium 2.0 mg/dL (1.9-2.7) 07/15/18 06:00 Total Bilirubin 0.40 mg/dL (0.2-1.0) 07/15/18 06:00 AST 159 U/L (13-39) H 07/15/18 06:00 ALT 37 U/L (7-52) 07/15/18 06:00 Alkaline Phosphatase 32 U/L (34-104) L 07/15/18 06:00 Total Creatine Kinase 248 U/L (10-223) H 07/22/18 06:27 Myoglobin 24.1 ng/mL (17.4-105.7) 07/17/18 06:23 C-Reactive Protein 1.60 mg/L (<8.01) 07/11/18 11:22 B-Natriuretic Peptide 70 pg/mL (<=100) 07/12/18 14:25 Total Protein 7.0 g/dL (6.4-8.9) 07/15/18 06:00 Albumin 3.7 g/dL (3.2-5.2) 07/15/18 06:00 Globulin 3.3 g/dL (2-4) 07/15/18 06:00 Albumin/Globulin Ratio 1.1 (1-3) 07/15/18 06:00 Urine Color Yellow 07/19/18 16:14 Urine Appearance Clear 07/19/18 16:14 Urine pH 6.0 (5-9) 07/19/18 16:14 Ur Specific [place] 1.020 (1.010-1.030) 07/19/18 16:14 Urine Protein Negative (Negative) 07/19/18 16:14 Urine Ketones Negative (Negative) 07/19/18 16:14 Urine Blood Negative (Negative) 07/19/18 16:14 Urine Nitrate Negative (Negative) 07/19/18 16:14 Urine Bilirubin Negative (Negative) 07/19/18 16:14 Urine Urobilinogen Negative (Negative) 07/19/18 16:14 Ur Leukocyte Esterase Negative (Negative) 07/19/18 16:14 Ur Random Microalbumin < 15.0 mg/L 07/20/18 08:00 Ur Creatinine mg/dL 127.90 mg/dL 07/20/18 08:00 Ur Creatinine Concen 127.90 mg/dL 07/20/18 08:00 Microalb/Creat Ratio TNP 07/20/18 08:00 Ur Total Protein Conc 5 mg/dL 07/20/18 08:00 Urine Glucose Negative (Negative) 07/19/18 16:14
--- NOTE | 2018-07-22 11:40 | CONS ---
ADDENDUM TO EMERGENCY ROOM CONSULTATION FROM 07/11/2018 DATE OF CONSULTATION: 07/11/2018. On reviewing my consultation note, I realized I hastily signed before carefully reviewing the physica l findings portion of my note. This is an addendum stating that in addition to the physical exam whe re I state the patient had excellent pulses, dorsalis pedis and posterior tibial, and in inspection o f his left leg which was soft and minimally tender to palpation and he did not have increased pain on passive stretch of his ankle, that is forced dorsiflexion and plantarflexion with reference to his l eg/calf pain. He did have discomfort and pain on the dorsum of his foot when I performed that maneuv er, but specifically on the anterior calf and the posterior calf, there was no increased discomfort, as well as the medial and lateral aspects of his left leg were soft and only minimally tender to palp ation. In addition to that, he had sensation intact to the dorsum and plantar aspect of his left judith t and on motor he could not dorsiflex his foot comfortably with no pain, but he was able to dorsiflex and plantarflex his left foot when I asked him to do so, and the pain he had on those maneuvers was in his left foot, but not his calf posteriorly or anteriorly and laterally. With these physical find ings, my feeling was that, based on my clinical exam, compartment pressure monitoring was not indicat ed as I believe that compartment syndrome is a clinical diagnosis and that measuring compartment pres sures was not indicated at that time. Also, at the end of my note I clearly stated that if the patient did have increased symptoms or shoul d orthopedic services be further needed, I was more than happy to respond and re-evaluate the patient . Again, my index of suspicion for an acute compartment syndrome of the left lower extremity was elizabteh y low at that time. [id number]/[facility] #: [id number]
[2018-07-22 17:02] LABS: Anti SSA/RO Antibody <0.2 U; JO-1 Antibody <0.2 U; SS-B/La Antibody <0.2 U; U1 RNP IgG Autoabs 0.2 U
[2018-07-23] MEDS: oxyCODONE/Acetamin 5/325 MG* TAB PO PRN ×2 (04:01→08:47)
[2018-07-23] MEDS: ceFAZolin 1 GM* Q8H (AddVan) IVPB SCH ×2 (06:11)
[2018-07-23] MEDS ORDERED: Polyethylene Glycol 3350* 17 GM PACKET PO PRN (07:57)
--- NOTE | 2018-07-23 09:49 | CONSULT ---
Subjective Interval History: Pt eating well and now of IVF. CK downtrended appropriately without e/o kidney injury. Will decrease amlodipine to 5mg as pt with BPs under better control, perhaps as pain better controlled. Autoimmune workup largely unrevealing, so likely this acute episode of rhabdo was from intense exercise. Review of Systems - Measurements Intake and Output: Intake and Output Last 24 Hours 07/21/18 07/22/18 07/23/18 07/24/18 06:59 06:59 06:59 06:59 Intake Total 370 1159 3313 1034 Output Total 8448 168 5174 Balance -804 760 5822 1034 Weight 157 lb Intake: IV Fluids 955 1982 981 ABX - CEFAZOLIN 55 LR 1982 981 NORMAL SALINE 50 NS 50ML, Cefazolin 1G 50 lr 800 IVPB 104 110 53 ABX - CEFAZOLIN 104 110 53 Oral 843 776 3967 Output: Urine 0370 964 6692 Other: # Bowel Movements 0 0 Estimated Stool Amount Medium Objective Active Medications: Acetaminophen (Tylenol Tab*) 650 mg PO Q8H PRN PRN Reason: PAIN OR TEMPERATURE Amlodipine Besylate (Norvasc Tab*) 5 mg PO DAILY [facility] Docusate Sodium (Colace Cap*) 100 mg PO BID PRN PRN Reason: CONSTIPATION Last Admin: 07/20/18 07:47 Dose: 100 mg Hydralazine HCl (Apresoline Iv*) 5 mg IV SLOW PU Q4H PRN PRN Reason: TACHYCARDIA Last Admin: 07/13/18 23:43 Dose: 5 mg Cefazolin Sodium 1 gm/ Sodium (Chloride) 50 mls @ 200 mls/hr IVPB Q8H [facility] Last Admin: 07/23/18 06:11 Dose: 200 mls/hr Magnesium Hydroxide (Milk Of Magnesia Liq*) 30 ml PO BID PRN PRN Reason: CONSTIPATION Last Admin: 07/20/18 07:47 Dose: 30 ml Morphine Sulfate (Morphine Inj (Syringe))*) 2 mg IV Q2H PRN PRN Reason: PAIN - SEVERE Last Admin: 07/21/18 22:47 Dose: 2 mg Oxycodone/Acetaminophen (Percocet 5/325 Tab*) 1 tab PO Q4H PRN PRN Reason: PAIN Last Admin: 07/21/18 22:22 Dose: 1 tab Oxycodone/Acetaminophen (Percocet 5/325 Tab*) 2 tab PO Q4H PRN PRN Reason: PAIN - MODERATE Last Admin: 07/23/18 08:47 Dose: 2 tab Polyethylene Glycol/Electrolytes (Miralax*) 17 gm PO DAILY PRN PRN Reason: CONSTIPATION Vital Signs - 8 hr 07/23/18 07/23/18 07/23/18 03:56 04:01 04:04 Temperature 98.8 F Pulse Rate 78 Respiratory 17 16 16 Rate Blood Pressure 125/70 (mmHg) O2 Sat by Pulse 100 Oximetry 07/23/18 07/23/18 07/23/18 06:14 07:37 08:47 Temperature 99.0 F Pulse Rate 68 Respiratory 16 16 16 Rate Blood Pressure 109/45 (mmHg) O2 Sat by Pulse 99 Oximetry Oxygen Devices in Use Now: None Result Diagrams: 07/22/18 06:27 07/22/18 06:27 Additional Lab and Data: Vital Signs: Temp Pulse Resp BP Pulse Ox 99.8 F 95 14 149/60 97 07/13/18 03:41 07/13/18 03:41 07/13/18 06:25 07/13/18 03:41 07/13/18 03:41 Microbiology and Other Data: Microbiology 07/14/18 16:31 Aerobic Blood Culture - Preliminary Blood Venous No Growth Day 1 Anaerobic Blood Culture - Preliminary No Growth Day 1 07/14/18 16:31 Aerobic Blood Culture - Preliminary Blood Venous No Growth Day 1 Anaerobic Blood Culture - Preliminary No Growth Day 1 Assessment/Plan - Billing Mr. Severino is a 27 yo male with no significant PMHx who was admitted on 07/11/18 with rhabdomyolysis and compartment syndrome after an intense workout. Now s/p fasciotomy with closure (07/11), re-exploration, extension of fasciotomy and wound vac placement (07/13) due to worsened pain, partial closure (07/16) with continued wound vac, now s/p skin graft (07/21). - cont antibiotics per ortho service - CK peaked at 18K, now downtrended appropriately with renal function remains normal - autoimmune work up unrevealing HTN: continue amlodipine 5mg Will need to establish primary care. Thank you for this consult. Patient ready for discharge from medical perspective. Will sign off. Please re-consult for further questions.
[2018-07-23] MEDS: amLODIPine TAB* 5 MG PO SCH (10:05)
--- NOTE | 2018-07-23 10:21 | PN ---
Progress Note - Progress Note Date of Service: 07/23/18 SOAP: Subjective: []Pt seen at bedside. He is POD 2 sp skin graft,he is feeling well. Denies CP, SOB, dizziness, nausea, fever or chills. Objective: []General: Appears well, NAD LLE: Thigh and calf dressing both CDI without any surrounding erythema and without discharge. Lower leg remains compressible. Nonpainful passive flexion/ extension of digits/ankle. DF remains weak though intact, PF intact. Sensation intact to light touch throughout the foot and digits with some tingling sensation described over the dorsum medially, normal sensation laterally on the dorsum. Capillary refill less than two seconds distally. Assessment: []POD 2 s/p skin graft of fasciotomy site following acute compartment syndrome of left lower leg Plan: []WBAT with crutches, limit walking on LLE but may bear weight as needed to mobilize with crutches. No need for continued formal PT/OT Keep dressing CDI until follow up visit Ready for DC from ortho standpoint Follow up with Dr Stahl in 1 week 1g Q 8 hr IV ancef until discharge then 5 days of 500 mg keflex q8 hr DC home today Vital Signs Temp 99.0 F 07/23/18 07:37 Pulse 68 07/23/18 07:37 Resp 16 07/23/18 08:47 BP 109/45 07/23/18 07:37 Pulse Ox 99 07/23/18 07:37 Intake & Output 07/22/18 07/23/18 07/23/18 18:59 06:59 18:59 Intake Total 2213 1100 1034 Output Total 975 1150 Balance 1238 -50 1034 Intake: IV Fluids 1982 981 LR 1982 981 IVPB 110 53 ABX - CEFAZOLIN 110 53 Oral 120 1100 Output: Urine 975 1150 Other: # Bowel Movements 0 Laboratory Last Values WBC 6.5 10^3/uL (3.5-10.8) 07/21/18 05:14 RBC 5.52 10^6 /uL (4.18-5.48) H 07/21/18 05:14 Hgb 12.2 g/dL (14.0-18.0) L 07/22/18 06:27 Hct 37 % (36-46) 07/22/18 06:27 MCV 77 fL (80-94) L 07/21/18 05:14 MCH 25 pg (27-31) L 07/21/18 05:14 MCHC 33 g/dL (31-36) 07/21/18 05:14 RDW 14 % (10.5-15) 07/21/18 05:14 Plt Count 371 10^3/uL (150-450) 07/21/18 05:14 MPV 7.3 fL (7.4-10.4) L 07/21/18 05:14 Neut % (Auto) 62.1 % 07/21/18 05:14 Lymph % (Auto) 30.1 % 07/21/18 05:14 [place] % (Auto) 6.7 % 07/21/18 05:14 Eos % (Auto) 0.7 % 07/21/18 05:14 Baso % (Auto) 0.4 % 07/21/18 05:14 Absolute Neuts (auto) 4.0 10^3/ul (1.5-7.7) 07/21/18 05:14 Absolute Lymphs (auto) 2.0 10^3/ul (1.0-4.8) 07/21/18 05:14 Absolute Monos (auto) 0.4 10^3/ul (0-0.8) 07/21/18 05:14 Absolute Eos (auto) 0 10^3/ul (0-0.6) 07/21/18 05:14 Absolute Basos (auto) 0 10^3/ul (0-0.2) 07/21/18 05:14 Absolute Nucleated RBC 0 10^3/ul 07/21/18 05:14 Nucleated RBC % 0.2 07/21/18 05:14 Sickle Cell Screen Positive (Negative) A 07/11/18 21:02 Hemoglobin A 60.1 % (95.8-98.0) L 07/11/18 21:02 Hemoglobin A2 3.7 % (2.0-3.3) H 07/11/18 21:02 Hemoglobin F () 0.0 % (0.0-0.9) 07/11/18 21:02 Hemoglobin S Positive 07/11/18 21:02 Variant Hemoglobin 36.2 = hb s % 07/11/18 21:02 Hgb ELP Interp See comment 07/11/18 21:02 INR (Anticoag Therapy) 1.04 (0.77-1.02) H 07/11/18 16:57 APTT 31.8 seconds (26.0-36.3) 07/11/18 16:57 Sodium 136 mmol/L (135-145) 07/22/18 06:27 Potassium 4.1 mmol/L (3.5-5.0) 07/22/18 06:27 Chloride 104 mmol/L (101-111) 07/22/18 06:27 Carbon Dioxide 26 mmol/L (22-32) 07/22/18 06:27 Anion Gap 6 mmol/L (2-11) 07/22/18 06:27 BUN 17 mg/dL (6-24) 07/22/18 06:27 Creatinine 0.90 mg/dL (0.67-1.17) 07/22/18 06:27 Est GFR ( Amer) 120.7 (>60) 07/22/18 06:27 Est GFR (Non-Af Amer) 99.8 (>60) 07/22/18 06:27 BUN/Creatinine Ratio 18.9 (8-20) 07/22/18 06:27 Glucose 94 mg/dL (70-100) 07/22/18 06:27 Lactic Acid 1.1 mmol/L (0.5-2.0) 07/13/18 07:15 Calcium 8.8 mg/dL (8.6-10.3) 07/22/18 06:27 Phosphorus 3.0 mg/dL (2.5-5.0) 07/15/18 06:00 Magnesium 2.0 mg/dL (1.9-2.7) 07/15/18 06:00 Total Bilirubin 0.40 mg/dL (0.2-1.0) 07/15/18 06:00 AST 159 U/L (13-39) H 07/15/18 06:00 ALT 37 U/L (7-52) 07/15/18 06:00 Alkaline Phosphatase 32 U/L (34-104) L 07/15/18 06:00 Total Creatine Kinase 298 U/L (10-223) H 07/23/18 08:57 Myoglobin 24.1 ng/mL (17.4-105.7) 07/17/18 06:23 C-Reactive Protein 1.60 mg/L (<8.01) 07/11/18 11:22 B-Natriuretic Peptide 70 pg/mL (<=100) 07/12/18 14:25 Total Protein 7.0 g/dL (6.4-8.9) 07/15/18 06:00 Albumin 3.7 g/dL (3.2-5.2) 07/15/18 06:00 Globulin 3.3 g/dL (2-4) 07/15/18 06:00 Albumin/Globulin Ratio 1.1 (1-3) 07/15/18 06:00 Aldolase 8.0 U/L (<7.7) H 07/20/18 04:48 Urine Color Yellow 07/19/18 16:14 Urine Appearance Clear 07/19/18 16:14 Urine pH 6.0 (5-9) 07/19/18 16:14 Ur Specific [place] 1.020 (1.010-1.030) 07/19/18 16:14 Urine Protein Negative (Negative) 07/19/18 16:14 Urine Ketones Negative (Negative) 07/19/18 16:14 Urine Blood Negative (Negative) 07/19/18 16:14 Urine Nitrate Negative (Negative) 07/19/18 16:14 Urine Bilirubin Negative (Negative) 07/19/18 16:14 Urine Urobilinogen Negative (Negative) 07/19/18 16:14 Ur Leukocyte Esterase Negative (Negative) 07/19/18 16:14 Ur Random Microalbumin < 15.0 mg/L 07/20/18 08:00 Ur Creatinine mg/dL 127.90 mg/dL 07/20/18 08:00 Ur Creatinine Concen 127.90 mg/dL 07/20/18 08:00 Microalb/Creat Ratio TNP 07/20/18 08:00 Ur Total Protein Conc 5 mg/dL 07/20/18 08:00 Urine Glucose Negative (Negative) 07/19/18 16:14 Anti-Nuclear Antibody 0.1 U 07/20/18 04:48 NOA-1 Antibody <0.2 U 07/20/18 04:48 SS-A/Ro Antibody <0.2 U 07/20/18 04:48 SS-B/La Antibody <0.2 U 07/20/18 04:48 Scl-70 Scleroderma Ab <0.2 U 07/20/18 04:48 U1-nRNP Antibody 0.2 U 07/20/18 04:48
--- NOTE | 2018-07-23 10:33 | DS ---
Orthopedic Discharge Summary - Discharge Summary Date of Admission:07/11/18 Date of Discharge: [07/23/18] Date of Surgery: [07/11/18, 07/13/18, 07/16/18] Attending Orthopedic Provider: [DR Stahl] Pre-operative Diagnosis: [ acute compartment syndrome anterior and lateral compartments of left lower leg, rhabdomyolysis ] Operative Procedure: [1) Fasciotomy, 2) I&D, wound vac placement 3) I&D, wound vac placement 4) Split thickness skin graft ] Condition of Patient: [stable] History: JOSR CHAUDHARI is a 27 year old M who present to [facility] with acute compartment syndrome of his left lower leg on 07.11.18 which developed after training exercise with the [employer]. Hospital Course: JOSR was admitted to [facility] on 07/11/18. He was diagnose with acute compartment syndrome of the left lower leg and underwent a fasciotomy without complication, he was then placed on short stay surgical unit. Pain was relieved, though over the next two days pain returned and CK was trending up, patient was brought back to the 07/13/18 OR for wound exploration, I&D, vac placement without complication. He recovered over the next several days with improvement in pain and had an I&D, vac change and partial closure on 07/16/[address] Childress. Procedure was without complication and patient again recovered with decreasing pain on the short stay surgical unit. On 07/21/18 patient was brought back to the OR for a final surgery, a split thickness skin graft. He again returned to short stay surgical unit instable condition. Throughout his stay he maintained intact DF/PF though DF remained weak. He also report decreased sensation over the dorsum of his foot, which improved throughout his stay. During his stay our hospitalist service was consulted, patient was diagnosed with hypertension and started on amlodipine. An autoimmunie workup was also done, which was largely unrevealing. Patient was found to have a positive sickle cell screen. On 07/23/18 he was deemed to be medically and orthopedically stable for discharge to home. Discharge Medications Medication Instructions Recorded Confirmed Type Acetaminophen TAB* [Tylenol TAB*] 650 mg PO Q8H PRN tab 07/23/18 Rx Cephalexin CAP* [Keflex CAP*] 500 mg PO TID #15 cap 07/23/18 Rx Docusate CAP* [Colace Cap*] 100 mg PO BID PRN cap 07/23/18 Rx amLODIPine TAB* [Norvasc 5 mg TAB*] 5 mg PO DAILY #14 tab 07/23/18 Rx oxyCODONE/Acetamin 5/325 MG* 1 tab PO Q4H PRN #20 tab MDD 6 07/23/18 Rx [Percocet 5/325 TAB*] oxyCODONE/Acetamin 5/325 MG* 2 tab PO Q4H PRN #0 tab MDD 6 07/23/18 Rx [Percocet 5/325 TAB*] Discharge to home in stable condition Weight bearing as tolerated with crutches, limit walking on left leg but may bear weight as needed to mobilize with crutches. No need for physical therapy until follow up visit Keep dressings clean, dry and intact until follow up visit Call orthopedics for increased pain, redness, swelling, numbness, drainage, fever or chills Go to the emergency room with chest pain or shortness of breath Make a follow up appointment with Dr. Stahl 07/28/18 Antibiotic: 500 mg keflex every 8 hours for 5 days Pain: percocet 5/325 1-2 tabs every 4 hours as needed for pain, max 6 per day. Wean off as soon as pain allows. Hold for sedation. Hypertension: amlodipine 5 mg tab once daily. You will need to make an appointment with a primary care provider to manage your blood pressure. You have been given 2 weeks of medication, your PCP will need to manage your blood pressure thereafter. Please be sure you have an appointment within this timeframe to ensure your blood pressure is being appropriately managed. Orthopedic office: [phone] [facility] [place]
[2018-07-23 11:47] VITALS: BP 135/66
[2018-07-24] MEDS ORDERED: amLODIPine TAB* 5 MG PO SCH (09:00)
== END 2018-07-23 15:40 | disposition home health service (06) | DRG 312 ==
LOC: ED 10:23 → OR 17:29 → SSU 18:45
PROVIDERS: ADMIT Orthopaedic Surgery; ATTEND Orthopaedic Surgery
PROC: 0KNT0ZZ Release Left Lower Leg Muscle, Open Approach (ICD-10-PCS; principal; 2018-07-12)
PROC: 0KNT0ZZ Release Left Lower Leg Muscle, Open Approach (ICD-10-PCS; 2018-07-12)
PROC: 0KBT0ZZ Excision of Left Lower Leg Muscle, Open Approach (ICD-10-PCS; 2018-07-13)
PROC: 2W1MX6Z Compression of Left Lower Extremity using Pressure Dressing (ICD-10-PCS; 2018-07-13)
PROC: 2W5 Placement, Anatomical Regions, Removal (ICD-10-PCS; 2018-07-16)
PROC: 2W1MX6Z Compression of Left Lower Extremity using Pressure Dressing (ICD-10-PCS; 2018-07-16)
PROC: 0HXLXZZ Transfer Left Lower Leg Skin, External Approach (ICD-10-PCS; 2018-07-21)
PROC: 0HBHXZZ Excision of Right Upper Leg Skin, External Approach (ICD-10-PCS; 2018-07-21)
DX: T79.A22A Traumatic compartment syndrome of left lower extremity, initial encounter (principal); X58.XXXA Exposure to other specified factors, initial encounter; I10 Essential (primary) hypertension; R00.0 Tachycardia, unspecified; D57.3 Sickle-cell trait; R20.0 Anesthesia of skin; G58.8 Other specified mononeuropathies; S81.802A Unspecified open wound, left lower leg, initial encounter; Z87.442 Personal history of urinary calculi; Y92.9 Unspecified place or not applicable
CPT/HCPCS: 36415; 71045; 80048; 80053; 81003; 82043; 82085; 82550; 82570; 83020; 83605; 83735; 83874; 83880; 84100; 84156; 85014; 85018; 85025; 85027; 85049; 85610; 85660; 85730; 86038; 86140; 86225; 86235; 87040; 88342; 99284; A9270-GY; J0330; J0360; J0690; J1100; J1170; J1885; J2250; J2270; J2400; J2405; J2704; J3010; J3490; J8540